=== PATIENT | male | born 1975 | race Caucasian/White ===

== ENCOUNTER 2018-08-24 17:51 | Emergency (ER) | payer MEDICARE, OTHER ==
[~2018-08-24] VITALS: Ht 198.1 cm; Wt 86.2 kg
[~2018-08-24 17:51] MED LIST: DIAZ10 PO; DIPH50 IV; Humalog100 UNIT/3 SQ; PREG150 PO; TEMA30 PO; TIZANIDINE HCL4 MG PO
[2018-08-24] MEDS ORDERED: DIVA500ER (18:06)
[2018-08-24] MEDS ORDERED: CYCL10 PO (18:06)
[2018-08-24] MEDS ORDERED: CLOP75 PO (18:06)
[2018-08-24] MEDS ORDERED: NORT75 (18:07)
[2018-08-24] MEDS ORDERED: PRAZ2 PO (18:07)
[2018-08-24] MEDS ORDERED: LORA1 PO (18:07)
[2018-08-24] MEDS ORDERED: Senna Laxative8.6 MG PO (18:07)
== END 2018-08-24 22:01 | disposition home or self-care (01) ==
LOC: ER 17:51
DX: S16.1XXA Strain of muscle, fascia and tendon at neck level, initial encounter (principal); V47.6XXA Car passenger injured in collision with fixed or stationary object in traffic accident, initial encounter
CPT/HCPCS: 72125; 96374; 96375; 99284-25; J1200

== ENCOUNTER 2018-09-05 17:23 | Emergency (ER) | payer MEDICARE, OTHER ==
[~2018-09-05] VITALS: Ht 198.1 cm; Wt 83.9 kg
[~2018-09-05 17:23] MED LIST changes: +CLOP75 PO; +CYCL10 PO; +DIVA500ER; +LORA1 PO; +NORT75; +PRAZ2 PO; +Senna Laxative8.6 MG PO
== END 2018-09-05 20:47 | disposition home or self-care (01) ==
LOC: ER 17:23
DX: G89.29 Other chronic pain (principal); Z88.8 Allergy status to other drugs, medicaments and biological substances; Z88.6 Allergy status to analgesic agent; Z88.0 Allergy status to penicillin; Z88.1 Allergy status to other antibiotic agents; Z88.5 Allergy status to narcotic agent; E11.9 Type 2 diabetes mellitus without complications; Z79.4 Long term (current) use of insulin; Z79.899 Other long term (current) drug therapy
CPT/HCPCS: 72070; 96374; 96375; 96376; 99283-25; J1200

== ENCOUNTER 2018-09-10 16:29 | Emergency (ER) | payer MEDICARE, OTHER ==
[~2018-09-10] VITALS: Ht 198.1 cm; Wt 88.5 kg
[2018-09-10] MEDS ORDERED: Prednisone20 MG PO (18:58)
== END 2018-09-10 19:12 | disposition home or self-care (01) ==
LOC: ER 16:29
DX: T78.09XA Anaphylactic reaction due to other food products, initial encounter (principal); Z88.6 Allergy status to analgesic agent; Z88.5 Allergy status to narcotic agent; Z88.8 Allergy status to other drugs, medicaments and biological substances; Z88.2 Allergy status to sulfonamides; Z88.1 Allergy status to other antibiotic agents; E11.9 Type 2 diabetes mellitus without complications; Z86.73 Personal history of transient ischemic attack (TIA), and cerebral infarction without residual deficits; K21.9 Gastro-esophageal reflux disease without esophagitis
CPT/HCPCS: 94640; 96361; 96372; 96374; 96375; 96376; 99284-25; J0171; J1200; J2930; J7030

== ENCOUNTER 2018-09-28 00:35 | Emergency (ER) | payer MEDICARE ==
[~2018-09-28] VITALS: Ht 198.1 cm; Wt 88.5 kg
[~2018-09-28 00:35] MED LIST changes: +Prednisone20 MG PO
== END 2018-09-28 04:13 | disposition home or self-care (01) ==
LOC: ER 00:35
DX: G89.29 Other chronic pain (principal); Z88.8 Allergy status to other drugs, medicaments and biological substances; Z88.6 Allergy status to analgesic agent; Z88.1 Allergy status to other antibiotic agents; Z88.5 Allergy status to narcotic agent; Z88.2 Allergy status to sulfonamides; Z79.899 Other long term (current) drug therapy; Z79.4 Long term (current) use of insulin; Z79.52 Long term (current) use of systemic steroids; E11.9 Type 2 diabetes mellitus without complications; Z86.73 Personal history of transient ischemic attack (TIA), and cerebral infarction without residual deficits
CPT/HCPCS: 96361; 96374; 96375; 99284-25; J1200; J7030

== ENCOUNTER 2018-10-07 20:28 | Emergency (ER) | payer MEDICARE ==
[~2018-10-07] VITALS: Ht 198.1 cm; Wt 86.2 kg
[2018-10-07 22:16] LABS: BASOPHILS ABSOLUTE AUTO 0.03 K/mm3 (0.00-0.23); BASOPHILS PERCENT AUTO 1 % (0-2); EOSINOPHILS ABSOLUTE AUTO 0.16 K/mm3 (0.00-0.68); EOSINOPHILS PERCENT AUTO 3 % (0-6); Hematocrit 38.7 % (37.0-53.0); Hemoglobin 12.2 g/dL (13.5-17.5); IMMATURE GRAN ABSOLUTE AUTO 0.03 K/mm3 (0.00-0.10); IMMATURE GRAN PERCENT AUTO 1 % (0-1); LYMPHOCYTES ABSOLUTE AUTO 1.21 K/mm3 (0.84-5.20); LYMPHOCYTES PERCENT AUTO 23 % (21-46); MONOCYTES ABSOLUTE AUTO 0.72 K/mm3 (0.16-1.47); MONOCYTES PERCENT AUTO 14 % (4-13); Mean Corpuscular HGB 28.3 pg (26.0-34.0); Mean Corpuscular HGB Conc 31.5 g/dL (31.5-36.5); Mean Corpuscular Volume 90 fL (80-100); Mean Platelet Volume 9.1 fL (9.1-12.4); NEUTROPHILS ABSOLUTE AUTO 3.18 K/mm3 (1.96-9.15); NEUTROPHILS PERCENT AUTO 60 % (41-73); Platelet Count 194 K/mm3 (150-400); RDW Coefficient Variation 18.1 % (11.7-14.2); RDW Standard Deviation 59.7 fL (35.1-46.3); Red Blood Cell Count 4.31 M/mm3 (4.30-5.90); White Blood Cell Count 5.33 K/mm3 (4.00-11.30)
[2018-10-07 22:54] LABS: Alanine Aminotransfer (ALT/SGP 173 U/L (12-78); Albumin, Blood 3.2 g/dL (3.4-5.0); Albumin/Globulin Ratio 0.7 (0.8-1.8); Alk Phos 683 U/L (50-136); Anion Gap 8 mmol/L (6-16); Aspartate Aminotrans (AST/SGOT 120 U/L (12-37); Blood Urea Nitrogen 27 mg/dL (8-24); CO2, Blood 27 mmol/L (21-32); Calcium, Blood 8.6 mg/dL (8.5-10.1); Chloride, Blood 98 mmol/L (98-108); Creatinine, Blood 1.23 mg/dL (0.60-1.20); Globulin, Blood 4.7 g/dL (2.2-4.0); Glomerular Filtration Rate >60 (60-); Glucose, Blood 271 mg/dL (70-99); Potassium, Blood 4.8 mmol/L (3.5-5.5); Sodium, Blood 133 mmol/L (136-145); Total Protein, Blood 7.9 g/dL (6.4-8.2)
[2018-10-07] MEDS ORDERED: Cipro500 MG PO (23:58)
[2018-10-09] MEDS ORDERED: DOCU100 PO (17:15)
== END 2018-10-08 01:23 | disposition home or self-care (01) ==
LOC: ER 20:28
PROVIDERS: Physician Assistant
DX: L03.031 Cellulitis of right toe (principal); E11.9 Type 2 diabetes mellitus without complications; Z86.73 Personal history of transient ischemic attack (TIA), and cerebral infarction without residual deficits; K21.9 Gastro-esophageal reflux disease without esophagitis; Z79.52 Long term (current) use of systemic steroids; Z79.4 Long term (current) use of insulin
CPT/HCPCS: 73630; 80053; 85025; 93922; 96374; 99284-25; J1200

== ENCOUNTER 2018-10-09 00:46 | Day surgery (SDC) | payer MEDICARE ==
[~2018-10-09 00:46] MED LIST changes: +Cipro500 MG PO
[2018-10-09] MEDS ORDERED: DOCU100 PO (17:15)
== END 2018-10-09 16:40 | disposition home or self-care (01) ==
LOC: ATC 00:46
DX: Z48.00 Encounter for change or removal of nonsurgical wound dressing (principal); Z45.2 Encounter for adjustment and management of vascular access device; Z87.892 Personal history of anaphylaxis; G82.22 Paraplegia, incomplete; Z79.899 Other long term (current) drug therapy; E10.65 Type 1 diabetes mellitus with hyperglycemia; Z79.4 Long term (current) use of insulin; M54.12 Radiculopathy, cervical region; Z89.512 Acquired absence of left leg below knee; G40.909 Epilepsy, unspecified, not intractable, without status epilepticus; G43.909 Migraine, unspecified, not intractable, without status migrainosus; Z79.02 Long term (current) use of antithrombotics/antiplatelets; Z86.73 Personal history of transient ischemic attack (TIA), and cerebral infarction without residual deficits; Z85.72 Personal history of non-Hodgkin lymphomas; F43.10 Post-traumatic stress disorder, unspecified; I25.2 Old myocardial infarction; Z95.1 Presence of aortocoronary bypass graft; Z92.3 Personal history of irradiation; Z90.49 Acquired absence of other specified parts of digestive tract
CPT/HCPCS: 99212

== ENCOUNTER 2018-10-15 00:04 | Day surgery (SDC) | payer MEDICARE ==
[~2018-10-15 00:04] MED LIST changes: +DOCU100 PO
[2018-10-15] MEDS ORDERED: Normal Saline Fl2 ML IV (14:39)
--- NOTE | 2018-10-15 16:00 | NUR ---
PT SPOUSE ARRIVED TO AFTER DRESSING WAS CHANGED. ASKED THIS RN IF I HAD USED SKIN PREP, YES IT WAS USED. REPORTS HE HAD A REACTION "ITCH/RASH" AFTER LAST TIME THAT WAS USED SO SHE CHANGED HIS PICC DRESSING. THIS RN THEN, CHANGED THE DRESSING AND CLEANSED SKIN THOROUGHLY WITH CHLORAPREP. NO REDNESS NOTED, IT WAS ONLY ON BRIEFLY. PT TOLERATED BOTH DRESSING CHANGES. STERILE TECHNIQUE MAINTAINED T/O PROCEDURES.
== END 2018-10-16 13:10 | disposition home or self-care (01) ==
LOC: ATC 00:04
DX: Z48.00 Encounter for change or removal of nonsurgical wound dressing (principal); Z87.892 Personal history of anaphylaxis
CPT/HCPCS: 36592

== ENCOUNTER 2018-10-19 20:53 | Emergency (ER) | payer MEDICARE ==
[~2018-10-19] VITALS: Ht 198.1 cm; Wt 90.7 kg
[~2018-10-19 20:53] MED LIST changes: +Normal Saline Fl2 ML IV
[2018-10-19 22:05] LABS: BASOPHILS ABSOLUTE AUTO 0.02 K/mm3 (0.00-0.23); BASOPHILS PERCENT AUTO 1 % (0-2); EOSINOPHILS PERCENT AUTO 3 % (0-6); Hematocrit 35.5 % (37.0-53.0); Hemoglobin 11.1 g/dL (13.5-17.5); IMMATURE GRAN ABSOLUTE AUTO 0.03 K/mm3 (0.00-0.10); IMMATURE GRAN PERCENT AUTO 1 % (0-1); LYMPHOCYTES ABSOLUTE AUTO 0.76 K/mm3 (0.84-5.20); LYMPHOCYTES PERCENT AUTO 24 % (21-46); MONOCYTES ABSOLUTE AUTO 0.38 K/mm3 (0.16-1.47); MONOCYTES PERCENT AUTO 12 % (4-13); Mean Corpuscular HGB 28.8 pg (26.0-34.0); Mean Corpuscular HGB Conc 31.3 g/dL (31.5-36.5); Mean Corpuscular Volume 92 fL (80-100); Mean Platelet Volume 10.1 fL (9.1-12.4); NEUTROPHILS ABSOLUTE AUTO 1.89 K/mm3 (1.96-9.15); NEUTROPHILS PERCENT AUTO 60 % (41-73); Platelet Count 146 K/mm3 (150-400); RDW Coefficient Variation 16.6 % (11.7-14.2); RDW Standard Deviation 56.7 fL (35.1-46.3); Red Blood Cell Count 3.85 M/mm3 (4.30-5.90); White Blood Cell Count 3.18 K/mm3 (4.00-11.30)
[2018-10-19 22:17] LABS: Alanine Aminotransfer (ALT/SGP 234 U/L (12-78); Albumin, Blood 3.1 g/dL (3.4-5.0); Albumin/Globulin Ratio 0.7 (0.8-1.8); Alk Phos 666 U/L (50-136); Anion Gap 7 mmol/L (6-16); Aspartate Aminotrans (AST/SGOT 132 U/L (12-37); Bilirubin, Total 0.9 mg/dL (0.1-1.0); Blood Urea Nitrogen 19 mg/dL (8-24); Bun/Creatinine Ratio 20.6 (12.0-20.0); CO2, Blood 27 mmol/L (21-32); Chloride, Blood 98 mmol/L (98-108); Creatinine, Blood 0.92 mg/dL (0.60-1.20); Globulin, Blood 4.7 g/dL (2.2-4.0); Glomerular Filtration Rate >60 (60-); Glucose, Blood 317 mg/dL (70-99); Sodium, Blood 132 mmol/L (136-145); Total Protein, Blood 7.8 g/dL (6.4-8.2)
[2018-10-19 22:27] LABS: Source, Urine Clean Catch
[2018-10-19 22:32] LABS: Bilirubin, Urine Neg (Neg); Blood, Urine 2+ (Neg); Glucose Qualitative, Urine 4+ (Neg); Ketones, Urine Neg (Neg); Leukocyte Esterase, Urine Neg (Neg); Nitrite, Urine Neg (Neg); Protein, Urine 3+ (Neg); Specific Gravity, Urine 1.015 (1.003-1.022); Urobilinogen, Urine 1+ (Normal)
[2018-10-19 22:39] LABS: Appearance, Urine Clear (Clear); Color, Urine Yellow (P-Yellow); White Blood Cells, Urine 0-2 /hpf (0-5)
[2018-10-19 22:40] LABS: Bacteria Few /hpf; Squamous Epithelial Cells Rare /hpf (Few)
[2018-10-19 22:43] LABS: U Amphetamine Screen Not Detected; U Barbituate Screen Not Detected; U Benzodiazapine Screen DETECTED; U Buprenorphine Screen Not Detected; U Cannabinoids Screen DETECTED; U Cocaine Screen Not Detected; U Methadone Screen Not Detected; U Methamphetamine Screen Not Detected; U Opiates Screen Not Detected; U Oxycodone Screen Not Detected; U Phencyclidine Screen Not Detected
[2018-10-19 22:44] LABS: U Propoxyphene Screen Not Detected
== END 2018-10-20 01:44 | disposition home or self-care (01) ==
LOC: ER 20:53
PROVIDERS: Emergency Medicine
DX: R56.9 Unspecified convulsions (principal); G89.29 Other chronic pain; S90.414A Abrasion, right lesser toe(s), initial encounter; D64.9 Anemia, unspecified; R79.89 Other specified abnormal findings of blood chemistry; X58.XXXA Exposure to other specified factors, initial encounter; Z88.8 Allergy status to other drugs, medicaments and biological substances; Z88.6 Allergy status to analgesic agent; Z88.0 Allergy status to penicillin; Z88.5 Allergy status to narcotic agent; Z88.2 Allergy status to sulfonamides; Z88.1 Allergy status to other antibiotic agents; Z79.899 Other long term (current) drug therapy; Z79.4 Long term (current) use of insulin; E11.9 Type 2 diabetes mellitus without complications; Z86.73 Personal history of transient ischemic attack (TIA), and cerebral infarction without residual deficits; K21.9 Gastro-esophageal reflux disease without esophagitis; Z87.891 Personal history of nicotine dependence
CPT/HCPCS: 80053; 81001; 85025; 93005; 93010; 96374; 96375; 96376; 99284-25; J1200; J2060

== ENCOUNTER 2018-10-22 05:21 | Day surgery (SDC) | payer MEDICARE | END 2018-10-22 15:13 | disposition home or self-care (01) | LOC: ATC 05:21 | DX: Z87.892 Personal history of anaphylaxis (principal); Z48.00 Encounter for change or removal of nonsurgical wound dressing; G82.22 Paraplegia, incomplete; Z79.899 Other long term (current) drug therapy; E10.65 Type 1 diabetes mellitus with hyperglycemia; Z79.4 Long term (current) use of insulin; M54.12 Radiculopathy, cervical region; Z89.512 Acquired absence of left leg below knee; G40.909 Epilepsy, unspecified, not intractable, without status epilepticus; Z86.73 Personal history of transient ischemic attack (TIA), and cerebral infarction without residual deficits; Z85.72 Personal history of non-Hodgkin lymphomas; I25.2 Old myocardial infarction; Z95.1 Presence of aortocoronary bypass graft | CPT/HCPCS: 99211 ==

== ENCOUNTER 2018-10-31 18:52 | Emergency (ER) | payer MEDICARE ==
[~2018-10-31] VITALS: Ht 198.1 cm; Wt 86.2 kg
[2018-10-31] MEDS ORDERED: DIAZ10 (19:19)
[2018-10-31 20:04] LABS: BASOPHILS ABSOLUTE AUTO 0.03 K/mm3 (0.00-0.23); BASOPHILS PERCENT AUTO 1 % (0-2); EOSINOPHILS PERCENT AUTO 3 % (0-6); Hematocrit 31.2 % (37.0-53.0); Hemoglobin 9.8 g/dL (13.5-17.5); IMMATURE GRAN ABSOLUTE AUTO 0.05 K/mm3 (0.00-0.10); IMMATURE GRAN PERCENT AUTO 2 % (0-1); LYMPHOCYTES ABSOLUTE AUTO 0.68 K/mm3 (0.84-5.20); LYMPHOCYTES PERCENT AUTO 21 % (21-46); MONOCYTES ABSOLUTE AUTO 0.45 K/mm3 (0.16-1.47); MONOCYTES PERCENT AUTO 14 % (4-13); Mean Corpuscular HGB 29.8 pg (26.0-34.0); Mean Corpuscular HGB Conc 31.4 g/dL (31.5-36.5); Mean Platelet Volume 9.2 fL (9.1-12.4); NEUTROPHILS ABSOLUTE AUTO 1.92 K/mm3 (1.96-9.15); NEUTROPHILS PERCENT AUTO 60 % (41-73); Platelet Count 154 K/mm3 (150-400); RDW Coefficient Variation 16.3 % (11.7-14.2); RDW Standard Deviation 56.7 fL (35.1-46.3); Red Blood Cell Count 3.29 M/mm3 (4.30-5.90); White Blood Cell Count 3.23 K/mm3 (4.00-11.30)
[2018-10-31 20:06] LABS: Mean Corpuscular Volume 95 fL (80-100)
[2018-10-31 20:15] LABS: Valproic Acid 50.5 ug/mL (50.0-100.0)
[2018-10-31 20:45] LABS: Alanine Aminotransfer (ALT/SGP 147 U/L (12-78); Albumin, Blood 2.8 g/dL (3.4-5.0); Albumin/Globulin Ratio 0.7 (0.8-1.8); Alk Phos 560 U/L (50-136); Anion Gap 6 mmol/L (6-16); Aspartate Aminotrans (AST/SGOT 107 U/L (12-37); Bilirubin, Total 1.2 mg/dL (0.1-1.0); Blood Urea Nitrogen 21 mg/dL (8-24); Bun/Creatinine Ratio 25.1 (12.0-20.0); CO2, Blood 26 mmol/L (21-32); Calcium, Blood 8.3 mg/dL (8.5-10.1); Chloride, Blood 99 mmol/L (98-108); Creatinine, Blood 0.84 mg/dL (0.60-1.20); Globulin, Blood 4.3 g/dL (2.2-4.0); Glomerular Filtration Rate >60 (60-); Glucose, Blood 337 mg/dL (70-99); Potassium, Blood 5.1 mmol/L (3.5-5.5); Sodium, Blood 131 mmol/L (136-145); Total Protein, Blood 7.1 g/dL (6.4-8.2)
== END 2018-10-31 22:57 | disposition home or self-care (01) ==
LOC: ER 18:52
PROVIDERS: Emergency Medicine
DX: G40.909 Epilepsy, unspecified, not intractable, without status epilepticus (principal); Z88.0 Allergy status to penicillin; Z88.6 Allergy status to analgesic agent; Z88.8 Allergy status to other drugs, medicaments and biological substances; Z88.1 Allergy status to other antibiotic agents; Z88.5 Allergy status to narcotic agent; Z88.2 Allergy status to sulfonamides; Z79.899 Other long term (current) drug therapy; Z79.4 Long term (current) use of insulin; E11.9 Type 2 diabetes mellitus without complications; Z86.73 Personal history of transient ischemic attack (TIA), and cerebral infarction without residual deficits; K21.9 Gastro-esophageal reflux disease without esophagitis; Z87.891 Personal history of nicotine dependence
CPT/HCPCS: 80053; 80164; 82947; 85025; 96374; 96375; 99284-25; J1200; J2060

== ENCOUNTER 2018-11-06 14:06 | Day surgery (SDC) | payer MEDICARE ==
[~2018-11-06 14:06] MED LIST changes: +DIAZ10
== END 2018-11-06 14:39 | disposition home or self-care (01) ==
LOC: ATC 14:06
DX: Z09 Encounter for follow-up examination after completed treatment for conditions other than malignant neoplasm (principal); G82.22 Paraplegia, incomplete; E10.65 Type 1 diabetes mellitus with hyperglycemia; M54.12 Radiculopathy, cervical region; Z89.512 Acquired absence of left leg below knee; G40.909 Epilepsy, unspecified, not intractable, without status epilepticus; Z87.892 Personal history of anaphylaxis; Z87.891 Personal history of nicotine dependence
CPT/HCPCS: 99211

== ENCOUNTER 2018-11-07 16:54 | Emergency (ER) | payer MEDICARE ==
[~2018-11-07] VITALS: Ht 172.7 cm; Wt 80.8 kg
[2018-11-07 18:00] LABS: Calcium, Ionized (POC) 1.16 mmol/L (1.10-1.46); Chloride (POC) 98 mmol/L (98-108); Glucose (ISTAT POC) 271 mg/dL (70-99); Hemoglobin (POC) 10.9 g/dL (13.5-17.5); Potassium (POC) 4.8 mmol/L (3.5-5.5); Sodium (POC) 134 mmol/L (135-148); Total CO2 (POC) 28 mmol/L (21-32)
== END 2018-11-07 21:08 | disposition home or self-care (01) ==
LOC: ER 16:54
PROVIDERS: Emergency Medicine
DX: R56.9 Unspecified convulsions (principal); G89.29 Other chronic pain; R51 Headache; E11.9 Type 2 diabetes mellitus without complications; Z86.73 Personal history of transient ischemic attack (TIA), and cerebral infarction without residual deficits; K21.9 Gastro-esophageal reflux disease without esophagitis; Z87.891 Personal history of nicotine dependence; Z88.6 Allergy status to analgesic agent; Z88.8 Allergy status to other drugs, medicaments and biological substances; Z88.0 Allergy status to penicillin; Z88.5 Allergy status to narcotic agent; Z88.1 Allergy status to other antibiotic agents; Z79.899 Other long term (current) drug therapy; Z79.4 Long term (current) use of insulin
CPT/HCPCS: 80047; 85014; 93005; 93010; 96374; 96375; 96376; 99284-25; J1200; J2060

== ENCOUNTER 2018-11-12 13:55 | Emergency (ER) | payer MEDICARE ==
[~2018-11-12] VITALS: Ht 198.1 cm; Wt 88.5 kg
[2018-11-12 16:00] LABS: Calcium, Ionized (POC) 1.16 mmol/L (1.10-1.46); Chloride (POC) 101 mmol/L (98-108); Glucose (ISTAT POC) 429 mg/dL (70-99); Hemoglobin (POC) 11.6 g/dL (13.5-17.5); Potassium (POC) 6.1 mmol/L (3.5-5.5); Sodium (POC) 132 mmol/L (135-148); Total CO2 (POC) 26 mmol/L (21-32)
[2018-11-12 17:31] LABS: Anion Gap 5 mmol/L (6-16); Blood Urea Nitrogen 26 mg/dL (8-24); Bun/Creatinine Ratio 30.3 (12.0-20.0); CO2, Blood 26 mmol/L (21-32); Calcium, Blood 8.4 mg/dL (8.5-10.1); Chloride, Blood 103 mmol/L (98-108); Creatinine, Blood 0.86 mg/dL (0.60-1.20); Glomerular Filtration Rate >60 (60-); Glucose, Blood 354 mg/dL (70-99); Potassium, Blood 4.9 mmol/L (3.5-5.5); Sodium, Blood 134 mmol/L (136-145)
[2018-11-12 17:40] LABS: Valproic Acid 36.1 ug/mL (50.0-100.0)
== END 2018-11-12 18:51 | disposition home or self-care (01) ==
LOC: ER 13:55
PROVIDERS: Emergency Medicine
DX: S30.0XXA Contusion of lower back and pelvis, initial encounter (principal); E87.5 Hyperkalemia; E11.65 Type 2 diabetes mellitus with hyperglycemia; W19.XXXA Unspecified fall, initial encounter; Z88.8 Allergy status to other drugs, medicaments and biological substances; Z88.0 Allergy status to penicillin; Z88.1 Allergy status to other antibiotic agents; Z88.5 Allergy status to narcotic agent; Z88.6 Allergy status to analgesic agent; Z79.899 Other long term (current) drug therapy; Z79.4 Long term (current) use of insulin; Z86.73 Personal history of transient ischemic attack (TIA), and cerebral infarction without residual deficits; Z87.891 Personal history of nicotine dependence
CPT/HCPCS: 72170; 72220; 80047; 80048; 80164; 82947; 85014; 96361; 96374; 96375; 96376; 99284-25; J1200; J1815; J2405; J7030

== ENCOUNTER 2018-11-17 00:56 | Day surgery (SDC) | payer MEDICARE | END 2018-11-17 14:00 | disposition home or self-care (01) | LOC: ATC 00:56 | DX: Z45.2 Encounter for adjustment and management of vascular access device (principal); G82.22 Paraplegia, incomplete; G40.909 Epilepsy, unspecified, not intractable, without status epilepticus; M54.12 Radiculopathy, cervical region; Z87.892 Personal history of anaphylaxis; Z89.512 Acquired absence of left leg below knee; Z87.891 Personal history of nicotine dependence | CPT/HCPCS: 99211 ==

== ENCOUNTER 2018-12-05 15:09 | Day surgery (SDC) | payer MEDICARE ==
[~2018-12-05 15:09] MED LIST changes: -DIAZ10
== END 2018-12-05 15:40 | disposition home or self-care (01) ==
LOC: ATC 15:09
DX: Z09 Encounter for follow-up examination after completed treatment for conditions other than malignant neoplasm (principal); G82.22 Paraplegia, incomplete; E10.9 Type 1 diabetes mellitus without complications; I10 Essential (primary) hypertension; I25.10 Atherosclerotic heart disease of native coronary artery without angina pectoris; M54.12 Radiculopathy, cervical region; G40.909 Epilepsy, unspecified, not intractable, without status epilepticus; Z87.892 Personal history of anaphylaxis; Z89.512 Acquired absence of left leg below knee; Z87.891 Personal history of nicotine dependence; Z79.899 Other long term (current) drug therapy; Z79.4 Long term (current) use of insulin; Z79.02 Long term (current) use of antithrombotics/antiplatelets
CPT/HCPCS: 99211

== ENCOUNTER 2018-12-10 08:32 | Day surgery (SDC) | payer MEDICARE, OTHER | END 2018-12-10 09:45 | disposition home or self-care (01) | LOC: ATC 08:32 | DX: Z09 Encounter for follow-up examination after completed treatment for conditions other than malignant neoplasm (principal); E10.9 Type 1 diabetes mellitus without complications; I10 Essential (primary) hypertension; G40.909 Epilepsy, unspecified, not intractable, without status epilepticus; Z87.892 Personal history of anaphylaxis; Z79.899 Other long term (current) drug therapy; Z87.891 Personal history of nicotine dependence | CPT/HCPCS: 99211 ==

== ENCOUNTER 2018-12-17 00:20 | Day surgery (SDC) | payer MEDICARE, OTHER ==
--- NOTE | 2018-12-17 19:20 | NUR ---
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 GILDARDO RN SAW CRACK IN LUMEN AND PT HAS NEW ORDER TO REPLACE PICC. PT ONLY DOES BENEDRYL FLUSHES VIA PICC AND THAT IS AN RN DOES THIS FOR HIM. THEY STATE THAT HIS EXISTING PICC IS 43 CM IN LENGTH. NO PICC RECORD EVERY WAS OBTAINED. STERILE TECHNIQUE DONE. CUT PICC AT 50 CM, BLOOD RETURN FROM LUMENS, FLUSHES WELL. PT NEEDED FULL 55 CM. ONCE THE OLD PICC WAS OUT AFTER EXCHANGE DID WE REALIZE THAT THE PICC WAS NOT 43 CM BUT 55 CM. PTS WAS VERY INSISTANT THAT IT WAS NOT 55 CM SINCE THIS IS WHAT THIS RN MEASURED, BUT CUT IT AT 50 CM. AGAIN PT IS ONLY USING THIS FOR IV PUSHES OF BENEDRYL AND OCCASIONAL FLUIDS. WROTE ON CARD THAT NO VESICANT MEDICATION TO BE PUT IN PICC. WILL FAX EVERYTHING TO [facility]
== END 2018-12-17 18:30 | disposition home or self-care (01) ==
LOC: ATC 00:20
DX: Z45.2 Encounter for adjustment and management of vascular access device (principal); G82.22 Paraplegia, incomplete; E10.65 Type 1 diabetes mellitus with hyperglycemia; M54.12 Radiculopathy, cervical region; G40.909 Epilepsy, unspecified, not intractable, without status epilepticus; Z89.512 Acquired absence of left leg below knee; Z87.892 Personal history of anaphylaxis; Z79.4 Long term (current) use of insulin; Z87.891 Personal history of nicotine dependence; Z79.899 Other long term (current) drug therapy
CPT/HCPCS: 36569; C1751

== ENCOUNTER 2018-12-25 10:54 | Day surgery (SDC) | payer MEDICARE, OTHER | END 2018-12-25 17:45 | disposition home or self-care (01) | LOC: ATC 10:54 | DX: Z45.2 Encounter for adjustment and management of vascular access device (principal); G40.909 Epilepsy, unspecified, not intractable, without status epilepticus; I10 Essential (primary) hypertension; I25.10 Atherosclerotic heart disease of native coronary artery without angina pectoris; E10.9 Type 1 diabetes mellitus without complications; M54.12 Radiculopathy, cervical region; I25.2 Old myocardial infarction; G43.909 Migraine, unspecified, not intractable, without status migrainosus; Z79.899 Other long term (current) drug therapy; Z79.4 Long term (current) use of insulin; Z86.73 Personal history of transient ischemic attack (TIA), and cerebral infarction without residual deficits; Z87.891 Personal history of nicotine dependence | CPT/HCPCS: 99211 ==

== ENCOUNTER 2019-01-01 15:19 | Day surgery (SDC) | payer MEDICARE, OTHER ==
[2019-01-01] MEDS ORDERED: MAGNESIUM SULF100 MG PO (16:00)
== END 2019-01-01 15:40 | disposition home or self-care (01) ==
LOC: ATC 15:19
DX: Z45.2 Encounter for adjustment and management of vascular access device (principal); E10.9 Type 1 diabetes mellitus without complications; M54.12 Radiculopathy, cervical region; G82.22 Paraplegia, incomplete; G40.909 Epilepsy, unspecified, not intractable, without status epilepticus; Z87.892 Personal history of anaphylaxis; Z89.512 Acquired absence of left leg below knee; Z79.899 Other long term (current) drug therapy; Z79.4 Long term (current) use of insulin; Z87.891 Personal history of nicotine dependence
CPT/HCPCS: 99211

== ENCOUNTER 2019-01-15 01:01 | Emergency (ER) | payer MEDICARE, OTHER ==
[~2019-01-15] VITALS: Ht 182.9 cm; Wt 86.2 kg
[~2019-01-15 01:01] MED LIST changes: +MAGNESIUM SULF100 MG PO
[2019-01-15 02:15] LABS: BASOPHILS ABSOLUTE AUTO 0.02 K/mm3 (0.00-0.23); BASOPHILS PERCENT AUTO 1 % (0-2); EOSINOPHILS ABSOLUTE AUTO 0.08 K/mm3 (0.00-0.68); EOSINOPHILS PERCENT AUTO 3 % (0-6); Hemoglobin 9.8 g/dL (13.5-17.5); IMMATURE GRAN ABSOLUTE AUTO 0.02 K/mm3 (0.00-0.10); IMMATURE GRAN PERCENT AUTO 1 % (0-1); LYMPHOCYTES ABSOLUTE AUTO 0.79 K/mm3 (0.84-5.20); LYMPHOCYTES PERCENT AUTO 25 % (21-46); MONOCYTES ABSOLUTE AUTO 0.46 K/mm3 (0.16-1.47); MONOCYTES PERCENT AUTO 14 % (4-13); Mean Corpuscular HGB 29.2 pg (26.0-34.0); Mean Corpuscular HGB Conc 31.6 g/dL (31.5-36.5); Mean Corpuscular Volume 92 fL (80-100); Mean Platelet Volume 9.1 fL (9.1-12.4); NEUTROPHILS ABSOLUTE AUTO 1.83 K/mm3 (1.96-9.15); NEUTROPHILS PERCENT AUTO 57 % (41-73); Platelet Count 125 K/mm3 (150-400); RDW Coefficient Variation 17.2 % (11.7-14.2); RDW Standard Deviation 58.7 fL (35.1-46.3); Red Blood Cell Count 3.36 M/mm3 (4.30-5.90)
[2019-01-15 02:29] LABS: International Normalized Ratio 0.94
[2019-01-15 02:35] LABS: Alanine Aminotransfer (ALT/SGP 115 U/L (12-78); Albumin, Blood 2.8 g/dL (3.4-5.0); Albumin/Globulin Ratio 0.7 (0.8-1.8); Alk Phos 525 U/L (50-136); Anion Gap 6 mmol/L (6-16); Aspartate Aminotrans (AST/SGOT 96 U/L (12-37); Bilirubin, Total 0.6 mg/dL (0.1-1.0); Blood Urea Nitrogen 24 mg/dL (8-24); Bun/Creatinine Ratio 24.2 (12.0-20.0); CO2, Blood 29 mmol/L (21-32); Chloride, Blood 106 mmol/L (98-108); Creatinine, Blood 0.99 mg/dL (0.60-1.20); Globulin, Blood 3.9 g/dL (2.2-4.0); Glomerular Filtration Rate >60 (60-); Glucose, Blood 107 mg/dL (70-99); Potassium, Blood 4.9 mmol/L (3.5-5.5); Sodium, Blood 141 mmol/L (136-145); Total Protein, Blood 6.7 g/dL (6.4-8.2)
== END 2019-01-15 04:21 | disposition home or self-care (01) ==
LOC: ER 01:01
PROVIDERS: Emergency Medicine
DX: G40.909 Epilepsy, unspecified, not intractable, without status epilepticus (principal); R47.01 Aphasia; K21.9 Gastro-esophageal reflux disease without esophagitis; Z88.0 Allergy status to penicillin; Z88.6 Allergy status to analgesic agent; Z88.8 Allergy status to other drugs, medicaments and biological substances; Z88.1 Allergy status to other antibiotic agents; Z88.5 Allergy status to narcotic agent; Z88.2 Allergy status to sulfonamides; Z79.899 Other long term (current) drug therapy; Z79.4 Long term (current) use of insulin; Z86.73 Personal history of transient ischemic attack (TIA), and cerebral infarction without residual deficits; Z87.891 Personal history of nicotine dependence
CPT/HCPCS: 70450; 80053; 85025; 85610; 93005; 93010; 96374; 96375; 99285-25; J1200

== ENCOUNTER 2019-01-30 14:01 | Day surgery (SDC) | payer MEDICARE, OTHER ==
[2019-05-18] MEDS ORDERED: Requip Xl2 MG PO (16:37)
[2019-05-18] MEDS ORDERED: Prilosec Otc20 MG PO (16:38)
[2019-05-18] MEDS ORDERED: MUPIROCIN15 GM EXT (16:39)
[2019-05-18] MEDS ORDERED: ONDA4 PO (16:40)
== END 2019-01-30 14:31 | disposition home or self-care (01) ==
LOC: ATC 14:01
DX: Z45.2 Encounter for adjustment and management of vascular access device (principal); Z87.891 Personal history of nicotine dependence
CPT/HCPCS: 99211

== ENCOUNTER 2019-02-02 15:03 | Emergency (ER) | payer MEDICARE, OTHER ==
[~2019-02-02] VITALS: Ht 172.7 cm; Wt 88.9 kg
[2019-02-02 17:12] LABS: BASOPHILS ABSOLUTE AUTO 0.03 K/mm3 (0.00-0.23); BASOPHILS PERCENT AUTO 1 % (0-2); EOSINOPHILS ABSOLUTE AUTO 0.16 K/mm3 (0.00-0.68); EOSINOPHILS PERCENT AUTO 4 % (0-6); Hematocrit 33.1 % (37.0-53.0); Hemoglobin 10.3 g/dL (13.5-17.5); IMMATURE GRAN ABSOLUTE AUTO 0.04 K/mm3 (0.00-0.10); IMMATURE GRAN PERCENT AUTO 1 % (0-1); LYMPHOCYTES ABSOLUTE AUTO 1.09 K/mm3 (0.84-5.20); LYMPHOCYTES PERCENT AUTO 25 % (21-46); MONOCYTES ABSOLUTE AUTO 0.62 K/mm3 (0.16-1.47); MONOCYTES PERCENT AUTO 14 % (4-13); Mean Corpuscular HGB 29.1 pg (26.0-34.0); Mean Corpuscular HGB Conc 31.1 g/dL (31.5-36.5); Mean Corpuscular Volume 94 fL (80-100); Mean Platelet Volume 9.3 fL (9.1-12.4); NEUTROPHILS ABSOLUTE AUTO 2.49 K/mm3 (1.96-9.15); NEUTROPHILS PERCENT AUTO 56 % (41-73); Platelet Count 188 K/mm3 (150-400); RDW Coefficient Variation 17.1 % (11.7-14.2); Red Blood Cell Count 3.54 M/mm3 (4.30-5.90); White Blood Cell Count 4.43 K/mm3 (4.00-11.30)
[2019-02-02 17:30] LABS: Troponin I <0.015 ng/mL (0.000-0.040)
[2019-02-02 17:46] LABS: Alanine Aminotransfer (ALT/SGP 181 U/L (12-78); Albumin, Blood 3.3 g/dL (3.4-5.0); Albumin/Globulin Ratio 0.8 (0.8-1.8); Alk Phos 781 U/L (50-136); Anion Gap 7 mmol/L (6-16); Aspartate Aminotrans (AST/SGOT 107 U/L (12-37); Bilirubin, Total 1.6 mg/dL (0.1-1.0); Blood Urea Nitrogen 31 mg/dL (8-24); Bun/Creatinine Ratio 25.6 (12.0-20.0); CO2, Blood 25 mmol/L (21-32); Chloride, Blood 98 mmol/L (98-108); Creatinine, Blood 1.21 mg/dL (0.60-1.20); Globulin, Blood 4.3 g/dL (2.2-4.0); Glomerular Filtration Rate >60 (60-); Glucose, Blood 221 mg/dL (70-99); Potassium, Blood 6.2 mmol/L (3.5-5.5); Sodium, Blood 130 mmol/L (136-145); Total Protein, Blood 7.6 g/dL (6.4-8.2)
[2019-02-02 20:11] LABS: Anion Gap 7 mmol/L (6-16); Blood Urea Nitrogen 28 mg/dL (8-24); Bun/Creatinine Ratio 24.8 (12.0-20.0); CO2, Blood 24 mmol/L (21-32); Calcium, Blood 8.7 mg/dL (8.5-10.1); Chloride, Blood 101 mmol/L (98-108); Creatinine, Blood 1.13 mg/dL (0.60-1.20); Glomerular Filtration Rate >60 (60-); Glucose, Blood 210 mg/dL (70-99); Potassium, Blood 5.1 mmol/L (3.5-5.5); Sodium, Blood 132 mmol/L (136-145)
[2019-05-18] MEDS ORDERED: Requip Xl2 MG PO (16:37)
[2019-05-18] MEDS ORDERED: Prilosec Otc20 MG PO (16:38)
[2019-05-18] MEDS ORDERED: MUPIROCIN15 GM EXT (16:39)
[2019-05-18] MEDS ORDERED: ONDA4 PO (16:40)
== END 2019-02-02 20:50 | disposition home or self-care (01) ==
LOC: ER 15:03
PROVIDERS: Emergency Medicine; Physician Assistant
DX: T75.4XXA Electrocution, initial encounter (principal); M54.5 Low back pain; M54.6 Pain in thoracic spine; W86.0XXA Exposure to domestic wiring and appliances, initial encounter; Z88.6 Allergy status to analgesic agent; Z88.8 Allergy status to other drugs, medicaments and biological substances; Z91.041 Radiographic dye allergy status; Z88.1 Allergy status to other antibiotic agents; Z88.5 Allergy status to narcotic agent; Z88.2 Allergy status to sulfonamides; Z79.899 Other long term (current) drug therapy; Z79.4 Long term (current) use of insulin; Z86.73 Personal history of transient ischemic attack (TIA), and cerebral infarction without residual deficits; K21.9 Gastro-esophageal reflux disease without esophagitis; Z87.891 Personal history of nicotine dependence
CPT/HCPCS: 72070; 72100; 80048; 80053; 84484; 85025; 93005; 93010; 96361; 96374; 96375; 96376; 99284-25; J1200; J7030

== ENCOUNTER 2019-02-04 17:46 | Emergency (ER) | payer MEDICARE, OTHER ==
[~2019-02-04] VITALS: Ht 198.1 cm; Wt 90.7 kg
[2019-05-18] MEDS ORDERED: Requip Xl2 MG PO (16:37)
[2019-05-18] MEDS ORDERED: Prilosec Otc20 MG PO (16:38)
[2019-05-18] MEDS ORDERED: MUPIROCIN15 GM EXT (16:39)
[2019-05-18] MEDS ORDERED: ONDA4 PO (16:40)
== END 2019-02-04 19:53 | disposition home or self-care (01) ==
LOC: ER 17:46
DX: S80.12XA Contusion of left lower leg, initial encounter (principal); L97.829 Non-pressure chronic ulcer of other part of left lower leg with unspecified severity; W19.XXXA Unspecified fall, initial encounter; Z79.899 Other long term (current) drug therapy; Z79.4 Long term (current) use of insulin
CPT/HCPCS: 73590; 96374; 96375; 99283-25; J1200

== ENCOUNTER 2019-02-11 00:22 | Day surgery (SDC) | payer MEDICARE, OTHER ==
[2019-05-18] MEDS ORDERED: Requip Xl2 MG PO (16:37)
[2019-05-18] MEDS ORDERED: Prilosec Otc20 MG PO (16:38)
[2019-05-18] MEDS ORDERED: MUPIROCIN15 GM EXT (16:39)
[2019-05-18] MEDS ORDERED: ONDA4 PO (16:40)
== END 2019-02-11 15:15 | disposition home or self-care (01) ==
LOC: ATC 00:22
DX: Z45.2 Encounter for adjustment and management of vascular access device (principal)
CPT/HCPCS: 99211

== ENCOUNTER 2019-02-19 01:15 | Day surgery (SDC) | payer OTHER ==
[2019-05-18] MEDS ORDERED: Requip Xl2 MG PO (16:37)
[2019-05-18] MEDS ORDERED: Prilosec Otc20 MG PO (16:38)
[2019-05-18] MEDS ORDERED: MUPIROCIN15 GM EXT (16:39)
[2019-05-18] MEDS ORDERED: ONDA4 PO (16:40)
== END 2019-02-19 16:11 | disposition home or self-care (01) ==
LOC: ATC 01:15
DX: Z45.2 Encounter for adjustment and management of vascular access device (principal); Z87.892 Personal history of anaphylaxis; R56.9 Unspecified convulsions; G82.22 Paraplegia, incomplete; E10.65 Type 1 diabetes mellitus with hyperglycemia; M54.12 Radiculopathy, cervical region; C85.90 Non-Hodgkin lymphoma, unspecified, unspecified site; F43.10 Post-traumatic stress disorder, unspecified; I25.10 Atherosclerotic heart disease of native coronary artery without angina pectoris; I25.2 Old myocardial infarction; I10 Essential (primary) hypertension; Z92.3 Personal history of irradiation; Z79.899 Other long term (current) drug therapy; Z79.01 Long term (current) use of anticoagulants; Z86.73 Personal history of transient ischemic attack (TIA), and cerebral infarction without residual deficits; Z89.512 Acquired absence of left leg below knee; Z79.4 Long term (current) use of insulin; Z95.1 Presence of aortocoronary bypass graft; Z88.8 Allergy status to other drugs, medicaments and biological substances; Z87.891 Personal history of nicotine dependence
CPT/HCPCS: 99211

== ENCOUNTER 2019-02-20 12:44 | Emergency (ER) | payer OTHER ==
[~2019-02-20] VITALS: Ht 198.1 cm; Wt 90.7 kg
[2019-02-20 13:48] LABS: BASOPHILS ABSOLUTE AUTO 0.02 K/mm3 (0.00-0.23); BASOPHILS PERCENT AUTO 1 % (0-2); EOSINOPHILS ABSOLUTE AUTO 0.08 K/mm3 (0.00-0.68); EOSINOPHILS PERCENT AUTO 3 % (0-6); Hematocrit 33.7 % (37.0-53.0); Hemoglobin 10.5 g/dL (13.5-17.5); IMMATURE GRAN ABSOLUTE AUTO 0.02 K/mm3 (0.00-0.10); IMMATURE GRAN PERCENT AUTO 1 % (0-1); LYMPHOCYTES ABSOLUTE AUTO 0.63 K/mm3 (0.84-5.20); LYMPHOCYTES PERCENT AUTO 23 % (21-46); MONOCYTES ABSOLUTE AUTO 0.41 K/mm3 (0.16-1.47); MONOCYTES PERCENT AUTO 15 % (4-13); Mean Corpuscular HGB 29.3 pg (26.0-34.0); Mean Corpuscular HGB Conc 31.2 g/dL (31.5-36.5); Mean Corpuscular Volume 94 fL (80-100); Mean Platelet Volume 9.3 fL (9.1-12.4); NEUTROPHILS ABSOLUTE AUTO 1.63 K/mm3 (1.96-9.15); NEUTROPHILS PERCENT AUTO 58 % (41-73); Platelet Count 132 K/mm3 (150-400); RDW Standard Deviation 52.8 fL (35.1-46.3); Red Blood Cell Count 3.58 M/mm3 (4.30-5.90); White Blood Cell Count 2.79 K/mm3 (4.00-11.30)
[2019-02-20 14:06] LABS: Alanine Aminotransfer (ALT/SGP 62 U/L (12-78); Albumin/Globulin Ratio 0.7 (0.8-1.8); Alk Phos 595 U/L (50-136); Anion Gap 6 mmol/L (6-16); Aspartate Aminotrans (AST/SGOT 55 U/L (12-37); Bilirubin, Total 0.8 mg/dL (0.1-1.0); Blood Urea Nitrogen 21 mg/dL (8-24); CO2, Blood 28 mmol/L (21-32); Calcium, Blood 9.2 mg/dL (8.5-10.1); Chloride, Blood 99 mmol/L (98-108); Creatinine, Blood 1.05 mg/dL (0.60-1.20); Globulin, Blood 4.3 g/dL (2.2-4.0); Glomerular Filtration Rate >60 (60-); Glucose, Blood 218 mg/dL (70-99); Sodium, Blood 133 mmol/L (136-145); Total Protein, Blood 7.3 g/dL (6.4-8.2)
[2019-05-18] MEDS ORDERED: Requip Xl2 MG PO (16:37)
[2019-05-18] MEDS ORDERED: Prilosec Otc20 MG PO (16:38)
[2019-05-18] MEDS ORDERED: MUPIROCIN15 GM EXT (16:39)
[2019-05-18] MEDS ORDERED: ONDA4 PO (16:40)
== END 2019-02-20 15:11 | disposition home or self-care (01) ==
LOC: ER 12:44
PROVIDERS: Emergency Medicine
DX: S16.1XXA Strain of muscle, fascia and tendon at neck level, initial encounter (principal); R56.9 Unspecified convulsions; M54.5 Low back pain; R79.89 Other specified abnormal findings of blood chemistry; E11.40 Type 2 diabetes mellitus with diabetic neuropathy, unspecified; K21.9 Gastro-esophageal reflux disease without esophagitis; M54.9 Dorsalgia, unspecified; G89.29 Other chronic pain; Z88.0 Allergy status to penicillin; Z88.6 Allergy status to analgesic agent; Z88.8 Allergy status to other drugs, medicaments and biological substances; Z88.5 Allergy status to narcotic agent; Z88.2 Allergy status to sulfonamides; Z79.4 Long term (current) use of insulin; Z79.899 Other long term (current) drug therapy; Z86.73 Personal history of transient ischemic attack (TIA), and cerebral infarction without residual deficits; W19.XXXA Unspecified fall, initial encounter
CPT/HCPCS: 70450; 72100; 72125; 80053; 80164; 85025; 96374; 96375; 96376; 99284-25; J1200

== ENCOUNTER 2019-03-02 00:26 | Day surgery (SDC) | payer OTHER ==
[2019-05-18] MEDS ORDERED: Requip Xl2 MG PO (16:37)
[2019-05-18] MEDS ORDERED: Prilosec Otc20 MG PO (16:38)
[2019-05-18] MEDS ORDERED: MUPIROCIN15 GM EXT (16:39)
[2019-05-18] MEDS ORDERED: ONDA4 PO (16:40)
== END 2019-03-02 14:52 | disposition home or self-care (01) ==
LOC: ATC 00:26
DX: Z45.2 Encounter for adjustment and management of vascular access device (principal); G82.22 Paraplegia, incomplete; E09.65 Drug or chemical induced diabetes mellitus with hyperglycemia; T50.8X5A Adverse effect of diagnostic agents, initial encounter; M54.12 Radiculopathy, cervical region; G40.909 Epilepsy, unspecified, not intractable, without status epilepticus; I10 Essential (primary) hypertension; I25.2 Old myocardial infarction; Z87.892 Personal history of anaphylaxis; Z79.899 Other long term (current) drug therapy; Z79.4 Long term (current) use of insulin; Z89.512 Acquired absence of left leg below knee; Z85.72 Personal history of non-Hodgkin lymphomas; Z95.1 Presence of aortocoronary bypass graft; Z91.09 Other allergy status, other than to drugs and biological substances; Z87.891 Personal history of nicotine dependence
CPT/HCPCS: 99211

== ENCOUNTER 2019-03-06 21:23 | Emergency (ER) | payer OTHER ==
[~2019-03-06] VITALS: Ht 198.1 cm; Wt 90.7 kg
[2019-05-18] MEDS ORDERED: Requip Xl2 MG PO (16:37)
[2019-05-18] MEDS ORDERED: Prilosec Otc20 MG PO (16:38)
[2019-05-18] MEDS ORDERED: MUPIROCIN15 GM EXT (16:39)
[2019-05-18] MEDS ORDERED: ONDA4 PO (16:40)
== END 2019-03-07 01:00 | disposition home or self-care (01) ==
LOC: ER 21:23
DX: S09.90XA Unspecified injury of head, initial encounter (principal); M54.2 Cervicalgia; M54.5 Low back pain; G89.29 Other chronic pain; E11.40 Type 2 diabetes mellitus with diabetic neuropathy, unspecified; N40.0 Benign prostatic hyperplasia without lower urinary tract symptoms; Z86.73 Personal history of transient ischemic attack (TIA), and cerebral infarction without residual deficits; Z89.512 Acquired absence of left leg below knee; Z88.0 Allergy status to penicillin; Z88.5 Allergy status to narcotic agent; Z88.6 Allergy status to analgesic agent; Z88.8 Allergy status to other drugs, medicaments and biological substances
CPT/HCPCS: 70450; 72125; 72131; 96374; 96375; 99284-25; J1200

== ENCOUNTER 2019-03-10 00:42 | Day surgery (SDC) | payer OTHER ==
[2019-05-18] MEDS ORDERED: Requip Xl2 MG PO (16:37)
[2019-05-18] MEDS ORDERED: Prilosec Otc20 MG PO (16:38)
[2019-05-18] MEDS ORDERED: MUPIROCIN15 GM EXT (16:39)
[2019-05-18] MEDS ORDERED: ONDA4 PO (16:40)
== END 2019-03-10 16:40 | disposition home or self-care (01) ==
LOC: ATC 00:42
DX: Z45.2 Encounter for adjustment and management of vascular access device (principal); G82.22 Paraplegia, incomplete; Z87.892 Personal history of anaphylaxis
CPT/HCPCS: 99211

== ENCOUNTER 2019-03-16 00:12 | Day surgery (SDC) | payer OTHER ==
[2019-05-18] MEDS ORDERED: Requip Xl2 MG PO (16:37)
[2019-05-18] MEDS ORDERED: Prilosec Otc20 MG PO (16:38)
[2019-05-18] MEDS ORDERED: MUPIROCIN15 GM EXT (16:39)
[2019-05-18] MEDS ORDERED: ONDA4 PO (16:40)
== END 2019-03-16 15:05 | disposition home or self-care (01) ==
LOC: ATC 00:12
DX: T88.6XXA Anaphylactic reaction due to adverse effect of correct drug or medicament properly administered, initial encounter (principal); T50.8X5A Adverse effect of diagnostic agents, initial encounter; G82.22 Paraplegia, incomplete; E10.9 Type 1 diabetes mellitus without complications; Z87.891 Personal history of nicotine dependence; Z88.8 Allergy status to other drugs, medicaments and biological substances
CPT/HCPCS: 99211

== ENCOUNTER 2019-03-23 00:18 | Day surgery (SDC) | payer OTHER ==
[2019-03-24] MEDS ORDERED: Humalog100 UNIT/1 SC (17:42)
[2019-05-18] MEDS ORDERED: Requip Xl2 MG PO (16:37)
[2019-05-18] MEDS ORDERED: Prilosec Otc20 MG PO (16:38)
[2019-05-18] MEDS ORDERED: MUPIROCIN15 GM EXT (16:39)
[2019-05-18] MEDS ORDERED: ONDA4 PO (16:40)
== END 2019-03-23 16:45 | disposition home or self-care (01) ==
LOC: ATC 00:18
DX: T88.6XXA Anaphylactic reaction due to adverse effect of correct drug or medicament properly administered, initial encounter (principal); T50.8X5A Adverse effect of diagnostic agents, initial encounter; N40.1 Benign prostatic hyperplasia with lower urinary tract symptoms; G40.909 Epilepsy, unspecified, not intractable, without status epilepticus; I10 Essential (primary) hypertension; E10.9 Type 1 diabetes mellitus without complications; I25.10 Atherosclerotic heart disease of native coronary artery without angina pectoris; I25.2 Old myocardial infarction; Z95.1 Presence of aortocoronary bypass graft; Z79.899 Other long term (current) drug therapy; Z79.02 Long term (current) use of antithrombotics/antiplatelets; Z86.73 Personal history of transient ischemic attack (TIA), and cerebral infarction without residual deficits; Z87.891 Personal history of nicotine dependence; Z87.892 Personal history of anaphylaxis
CPT/HCPCS: 99211

== ENCOUNTER 2019-03-24 17:06 | Emergency (ER) | payer OTHER ==
[~2019-03-24] VITALS: Ht 193 cm; Wt 86.2 kg
[2019-03-24] MEDS ORDERED: Humalog100 UNIT/1 SC (17:42)
[2019-05-18] MEDS ORDERED: Requip Xl2 MG PO (16:37)
[2019-05-18] MEDS ORDERED: Prilosec Otc20 MG PO (16:38)
[2019-05-18] MEDS ORDERED: MUPIROCIN15 GM EXT (16:39)
[2019-05-18] MEDS ORDERED: ONDA4 PO (16:40)
== END 2019-03-24 18:38 | disposition home or self-care (01) ==
LOC: ER 17:06
DX: S40.012A Contusion of left shoulder, initial encounter (principal); E11.40 Type 2 diabetes mellitus with diabetic neuropathy, unspecified; K21.9 Gastro-esophageal reflux disease without esophagitis; Z87.891 Personal history of nicotine dependence; Z79.899 Other long term (current) drug therapy; Z86.73 Personal history of transient ischemic attack (TIA), and cerebral infarction without residual deficits; Z88.0 Allergy status to penicillin; Z88.1 Allergy status to other antibiotic agents; Z88.2 Allergy status to sulfonamides; Z88.5 Allergy status to narcotic agent; Z88.8 Allergy status to other drugs, medicaments and biological substances; Z88.6 Allergy status to analgesic agent; Z79.4 Long term (current) use of insulin; W05.0XXA Fall from non-moving wheelchair, initial encounter
CPT/HCPCS: 73030; 93005; 93010; 96374; 96375; 99283-25; J1200

== ENCOUNTER 2019-03-25 15:36 | Emergency (ER) | payer OTHER ==
[~2019-03-25] VITALS: Ht 198.1 cm; Wt 90.7 kg
[~2019-03-25 15:36] MED LIST changes: +Humalog100 UNIT/1 SC
[2019-03-25 16:35] LABS: BASOPHILS ABSOLUTE AUTO 0.03 K/mm3 (0.00-0.23); BASOPHILS PERCENT AUTO 1 % (0-2); EOSINOPHILS ABSOLUTE AUTO 0.24 K/mm3 (0.00-0.68); EOSINOPHILS PERCENT AUTO 5 % (0-6); Hematocrit 33.5 % (37.0-53.0); Hemoglobin 10.4 g/dL (13.5-17.5); IMMATURE GRAN ABSOLUTE AUTO 0.08 K/mm3 (0.00-0.10); IMMATURE GRAN PERCENT AUTO 2 % (0-1); LYMPHOCYTES ABSOLUTE AUTO 0.78 K/mm3 (0.84-5.20); LYMPHOCYTES PERCENT AUTO 17 % (21-46); MONOCYTES ABSOLUTE AUTO 0.51 K/mm3 (0.16-1.47); MONOCYTES PERCENT AUTO 11 % (4-13); Mean Corpuscular Volume 90 fL (80-100); Mean Platelet Volume 8.8 fL (9.1-12.4); NEUTROPHILS ABSOLUTE AUTO 3.06 K/mm3 (1.96-9.15); NEUTROPHILS PERCENT AUTO 65 % (41-73); Platelet Count 120 K/mm3 (150-400); RDW Coefficient Variation 14.9 % (11.7-14.2); RDW Standard Deviation 49.6 fL (35.1-46.3); Red Blood Cell Count 3.71 M/mm3 (4.30-5.90)
[2019-03-25 16:59] LABS: Alanine Aminotransfer (ALT/SGP 72 U/L (12-78); Albumin, Blood 2.8 g/dL (3.4-5.0); Albumin/Globulin Ratio 0.7 (0.8-1.8); Alk Phos 545 U/L (50-136); Anion Gap 5 mmol/L (6-16); Aspartate Aminotrans (AST/SGOT 68 U/L (12-37); Bilirubin, Total 0.5 mg/dL (0.1-1.0); Blood Urea Nitrogen 22 mg/dL (8-24); Bun/Creatinine Ratio 20.4 (12.0-20.0); CO2, Blood 29 mmol/L (21-32); Chloride, Blood 101 mmol/L (98-108); Creatinine, Blood 1.08 mg/dL (0.60-1.20); Globulin, Blood 4.2 g/dL (2.2-4.0); Glomerular Filtration Rate >60 (60-); Glucose, Blood 190 mg/dL (70-99); Potassium, Blood 5.1 mmol/L (3.5-5.5); Sodium, Blood 135 mmol/L (136-145)
[2019-05-18] MEDS ORDERED: Requip Xl2 MG PO (16:37)
[2019-05-18] MEDS ORDERED: Prilosec Otc20 MG PO (16:38)
[2019-05-18] MEDS ORDERED: MUPIROCIN15 GM EXT (16:39)
[2019-05-18] MEDS ORDERED: ONDA4 PO (16:40)
== END 2019-03-25 17:42 | disposition home or self-care (01) ==
LOC: ER 15:36
PROVIDERS: Physician Assistant
DX: G40.909 Epilepsy, unspecified, not intractable, without status epilepticus (principal); M54.2 Cervicalgia; G89.29 Other chronic pain; E11.40 Type 2 diabetes mellitus with diabetic neuropathy, unspecified; K21.9 Gastro-esophageal reflux disease without esophagitis; N40.0 Benign prostatic hyperplasia without lower urinary tract symptoms; Z86.73 Personal history of transient ischemic attack (TIA), and cerebral infarction without residual deficits; Z87.891 Personal history of nicotine dependence; Z79.899 Other long term (current) drug therapy; Z79.4 Long term (current) use of insulin; W06.XXXA Fall from bed, initial encounter
CPT/HCPCS: 70450; 72125; 80053; 85025; 96374; 96375; 99284-25; J1200; J2060

== ENCOUNTER 2019-03-29 00:10 | Day surgery (SDC) | payer OTHER ==
[2019-05-18] MEDS ORDERED: Requip Xl2 MG PO (16:37)
[2019-05-18] MEDS ORDERED: Prilosec Otc20 MG PO (16:38)
[2019-05-18] MEDS ORDERED: MUPIROCIN15 GM EXT (16:39)
[2019-05-18] MEDS ORDERED: ONDA4 PO (16:40)
== END 2019-03-29 16:48 | disposition home or self-care (01) ==
LOC: ATC 00:10
DX: T88.6XXA Anaphylactic reaction due to adverse effect of correct drug or medicament properly administered, initial encounter (principal); T50.8X5A Adverse effect of diagnostic agents, initial encounter; G82.22 Paraplegia, incomplete; E10.9 Type 1 diabetes mellitus without complications; Z88.8 Allergy status to other drugs, medicaments and biological substances; Z99.3 Dependence on wheelchair; Z87.891 Personal history of nicotine dependence; Z89.512 Acquired absence of left leg below knee
CPT/HCPCS: 99211

== ENCOUNTER 2019-03-31 22:55 | Emergency (ER) | payer OTHER ==
[~2019-03-31] VITALS: Ht 182.9 cm; Wt 81.7 kg
[2019-05-18] MEDS ORDERED: Requip Xl2 MG PO (16:37)
[2019-05-18] MEDS ORDERED: Prilosec Otc20 MG PO (16:38)
[2019-05-18] MEDS ORDERED: MUPIROCIN15 GM EXT (16:39)
[2019-05-18] MEDS ORDERED: ONDA4 PO (16:40)
== END 2019-04-01 00:50 | disposition home or self-care (01) ==
LOC: ER 22:55
DX: G40.909 Epilepsy, unspecified, not intractable, without status epilepticus (principal); Z88.8 Allergy status to other drugs, medicaments and biological substances; Z88.6 Allergy status to analgesic agent; Z88.0 Allergy status to penicillin; Z88.1 Allergy status to other antibiotic agents; Z88.5 Allergy status to narcotic agent; Z79.4 Long term (current) use of insulin; Z79.899 Other long term (current) drug therapy; E11.40 Type 2 diabetes mellitus with diabetic neuropathy, unspecified; Z86.73 Personal history of transient ischemic attack (TIA), and cerebral infarction without residual deficits; K21.9 Gastro-esophageal reflux disease without esophagitis; Z87.891 Personal history of nicotine dependence
CPT/HCPCS: 82947; 93005; 93010; 96374; 96375; 99284-25; J1200

== ENCOUNTER 2019-04-01 15:02 | Emergency (ER) | payer OTHER ==
[~2019-04-01] VITALS: Ht 182.9 cm; Wt 81.7 kg
[2019-04-01 16:40] LABS: BASOPHILS ABSOLUTE AUTO 0.03 K/mm3 (0.00-0.23); BASOPHILS PERCENT AUTO 1 % (0-2); EOSINOPHILS ABSOLUTE AUTO 0.21 K/mm3 (0.00-0.68); EOSINOPHILS PERCENT AUTO 5 % (0-6); Hematocrit 32.6 % (37.0-53.0); IMMATURE GRAN ABSOLUTE AUTO 0.02 K/mm3 (0.00-0.10); IMMATURE GRAN PERCENT AUTO 1 % (0-1); LYMPHOCYTES ABSOLUTE AUTO 0.85 K/mm3 (0.84-5.20); LYMPHOCYTES PERCENT AUTO 20 % (21-46); MONOCYTES ABSOLUTE AUTO 0.46 K/mm3 (0.16-1.47); MONOCYTES PERCENT AUTO 11 % (4-13); Mean Corpuscular HGB 27.2 pg (26.0-34.0); Mean Corpuscular HGB Conc 30.7 g/dL (31.5-36.5); Mean Corpuscular Volume 89 fL (80-100); Mean Platelet Volume 9.2 fL (9.1-12.4); NEUTROPHILS ABSOLUTE AUTO 2.78 K/mm3 (1.96-9.15); NEUTROPHILS PERCENT AUTO 64 % (41-73); Platelet Count 107 K/mm3 (150-400); RDW Coefficient Variation 15.4 % (11.7-14.2); RDW Standard Deviation 49.7 fL (35.1-46.3); Red Blood Cell Count 3.67 M/mm3 (4.30-5.90); White Blood Cell Count 4.35 K/mm3 (4.00-11.30)
[2019-04-01 18:22] LABS: Alanine Aminotransfer (ALT/SGP 85 U/L (12-78); Albumin, Blood 2.8 g/dL (3.4-5.0); Albumin/Globulin Ratio 0.7 (0.8-1.8); Alk Phos 538 U/L (50-136); Anion Gap 3 mmol/L (6-16); Aspartate Aminotrans (AST/SGOT 91 U/L (12-37); Bilirubin, Total 0.7 mg/dL (0.1-1.0); Blood Urea Nitrogen 26 mg/dL (8-24); Bun/Creatinine Ratio 20.5 (12.0-20.0); CO2, Blood 28 mmol/L (21-32); Calcium, Blood 8.7 mg/dL (8.5-10.1); Chloride, Blood 102 mmol/L (98-108); Creatinine, Blood 1.27 mg/dL (0.60-1.20); Globulin, Blood 4.2 g/dL (2.2-4.0); Glomerular Filtration Rate >60 (60-); Glucose, Blood 222 mg/dL (70-99); Magnesium, Blood 2.3 mg/dL (1.6-2.4); Potassium, Blood 5.4 mmol/L (3.5-5.5); Prolactin 8.2 ng/mL (2.5-17.4); Sodium, Blood 133 mmol/L (136-145); Valproic Acid 62.8 ug/mL (50.0-100.0)
[2019-05-18] MEDS ORDERED: Requip Xl2 MG PO (16:37)
[2019-05-18] MEDS ORDERED: Prilosec Otc20 MG PO (16:38)
[2019-05-18] MEDS ORDERED: MUPIROCIN15 GM EXT (16:39)
[2019-05-18] MEDS ORDERED: ONDA4 PO (16:40)
== END 2019-04-01 19:14 | disposition home or self-care (01) ==
LOC: ER 15:02
PROVIDERS: Emergency Medicine
DX: G40.909 Epilepsy, unspecified, not intractable, without status epilepticus (principal); G43.909 Migraine, unspecified, not intractable, without status migrainosus; E11.40 Type 2 diabetes mellitus with diabetic neuropathy, unspecified; N40.0 Benign prostatic hyperplasia without lower urinary tract symptoms; Z86.73 Personal history of transient ischemic attack (TIA), and cerebral infarction without residual deficits; Z87.891 Personal history of nicotine dependence; Z88.0 Allergy status to penicillin; Z88.6 Allergy status to analgesic agent; Z88.1 Allergy status to other antibiotic agents; Z88.8 Allergy status to other drugs, medicaments and biological substances; Z88.5 Allergy status to narcotic agent; Z88.2 Allergy status to sulfonamides; Z79.899 Other long term (current) drug therapy; Z79.4 Long term (current) use of insulin
CPT/HCPCS: 70450; 80053; 80164; 83605; 83735; 84146; 85025; 96374; 96375; 96376; 99284-25; J1200

== ENCOUNTER 2019-04-06 12:53 | Emergency (ER) | payer OTHER ==
[~2019-04-06] VITALS: Ht 198.1 cm; Wt 88.5 kg
[2019-04-06 14:45] LABS: Calcium, Ionized (POC) 1.11 mmol/L (1.10-1.46); Chloride (POC) 102 mmol/L (98-108); Creatinine (POC) 1.5 mg/dL (0.8-1.3); Glucose (ISTAT POC) 229 mg/dL (70-99); Hemoglobin (POC) 11.9 g/dL (13.5-17.5); Sodium (POC) 131 mmol/L (135-148); Total CO2 (POC) 25 mmol/L (21-32)
[2019-04-06 15:12] LABS: Anion Gap 3 mmol/L (6-16); Blood Urea Nitrogen 27 mg/dL (8-24); Bun/Creatinine Ratio 22.1 (12.0-20.0); CO2, Blood 27 mmol/L (21-32); Calcium, Blood 9.1 mg/dL (8.5-10.1); Chloride, Blood 99 mmol/L (98-108); Creatinine, Blood 1.22 mg/dL (0.60-1.20); Glomerular Filtration Rate >60 (60-); Glucose, Blood 228 mg/dL (70-99); Potassium, Blood 5.8 mmol/L (3.5-5.5); Sodium, Blood 129 mmol/L (136-145); Valproic Acid 87.1 ug/mL (50.0-100.0)
[2019-05-18] MEDS ORDERED: Requip Xl2 MG PO (16:37)
[2019-05-18] MEDS ORDERED: Prilosec Otc20 MG PO (16:38)
[2019-05-18] MEDS ORDERED: MUPIROCIN15 GM EXT (16:39)
[2019-05-18] MEDS ORDERED: ONDA4 PO (16:40)
== END 2019-04-06 17:15 | disposition home or self-care (01) ==
LOC: ER 12:53
PROVIDERS: Emergency Medicine
DX: R56.9 Unspecified convulsions (principal); M25.511 Pain in right shoulder; M25.512 Pain in left shoulder; E87.5 Hyperkalemia; E11.40 Type 2 diabetes mellitus with diabetic neuropathy, unspecified; Z86.73 Personal history of transient ischemic attack (TIA), and cerebral infarction without residual deficits; K21.9 Gastro-esophageal reflux disease without esophagitis; G47.00 Insomnia, unspecified; Z87.891 Personal history of nicotine dependence
CPT/HCPCS: 73030; 80047; 80048; 80164; 85014; 96374; 99283-25; J2250

== ENCOUNTER 2019-04-08 15:03 | Emergency (ER) | payer OTHER ==
[~2019-04-08] VITALS: Ht 198.1 cm; Wt 200.0 kg
[2019-04-08 16:27] LABS: BASOPHILS ABSOLUTE AUTO 0.01 K/mm3 (0.00-0.23); BASOPHILS PERCENT AUTO 0 % (0-2); EOSINOPHILS ABSOLUTE AUTO 0.18 K/mm3 (0.00-0.68); EOSINOPHILS PERCENT AUTO 5 % (0-6); Hemoglobin 10.3 g/dL (13.5-17.5); IMMATURE GRAN ABSOLUTE AUTO 0.09 K/mm3 (0.00-0.10); IMMATURE GRAN PERCENT AUTO 3 % (0-1); LYMPHOCYTES ABSOLUTE AUTO 0.73 K/mm3 (0.84-5.20); LYMPHOCYTES PERCENT AUTO 20 % (21-46); MONOCYTES ABSOLUTE AUTO 0.52 K/mm3 (0.16-1.47); MONOCYTES PERCENT AUTO 14 % (4-13); Mean Corpuscular HGB 27.2 pg (26.0-34.0); Mean Corpuscular HGB Conc 31.2 g/dL (31.5-36.5); Mean Corpuscular Volume 87 fL (80-100); NEUTROPHILS ABSOLUTE AUTO 2.09 K/mm3 (1.96-9.15); NEUTROPHILS PERCENT AUTO 58 % (41-73); Platelet Count 138 K/mm3 (150-400); RDW Coefficient Variation 15.9 % (11.7-14.2); RDW Standard Deviation 50.7 fL (35.1-46.3); Red Blood Cell Count 3.78 M/mm3 (4.30-5.90); White Blood Cell Count 3.62 K/mm3 (4.00-11.30)
[2019-04-08 16:41] LABS: CPK Creatine Kinase 76 U/L (39-308); Creatine Kinase MB 4.2 ng/mL (0.0-3.6); Creatine Kinase MB Index 5.5 (0.0-4.0); Magnesium, Blood 2.1 mg/dL (1.6-2.4)
[2019-04-08 16:49] LABS: Alanine Aminotransfer (ALT/SGP 103 U/L (12-78); Albumin/Globulin Ratio 0.7 (0.8-1.8); Alk Phos 596 U/L (50-136); Aspartate Aminotrans (AST/SGOT 99 U/L (12-37); Bilirubin, Total 0.8 mg/dL (0.1-1.0); Blood Urea Nitrogen 21 mg/dL (8-24); Bun/Creatinine Ratio 18.6 (12.0-20.0); CO2, Blood 26 mmol/L (21-32); Calcium, Blood 9.1 mg/dL (8.5-10.1); Creatinine, Blood 1.13 mg/dL (0.60-1.20); Globulin, Blood 4.6 g/dL (2.2-4.0); Glomerular Filtration Rate >60 (60-); Glucose, Blood 208 mg/dL (70-99); Total Protein, Blood 7.6 g/dL (6.4-8.2)
[2019-05-18] MEDS ORDERED: Requip Xl2 MG PO (16:37)
[2019-05-18] MEDS ORDERED: Prilosec Otc20 MG PO (16:38)
[2019-05-18] MEDS ORDERED: MUPIROCIN15 GM EXT (16:39)
[2019-05-18] MEDS ORDERED: ONDA4 PO (16:40)
== END 2019-04-08 20:00 | disposition home or self-care (01) ==
LOC: ER 15:03
PROVIDERS: Emergency Medicine
DX: G40.909 Epilepsy, unspecified, not intractable, without status epilepticus (principal); E11.40 Type 2 diabetes mellitus with diabetic neuropathy, unspecified; M54.9 Dorsalgia, unspecified; G89.29 Other chronic pain; K21.9 Gastro-esophageal reflux disease without esophagitis; G47.00 Insomnia, unspecified; F43.10 Post-traumatic stress disorder, unspecified; Z86.73 Personal history of transient ischemic attack (TIA), and cerebral infarction without residual deficits; Z87.891 Personal history of nicotine dependence; Z88.1 Allergy status to other antibiotic agents; Z88.5 Allergy status to narcotic agent; Z88.0 Allergy status to penicillin; Z88.8 Allergy status to other drugs, medicaments and biological substances; Z88.2 Allergy status to sulfonamides; Z79.4 Long term (current) use of insulin; Z79.899 Other long term (current) drug therapy
CPT/HCPCS: 80053; 80164; 82550; 82553; 83605; 83735; 84145; 85025; 93005; 93010; 99284-25

== ENCOUNTER 2019-04-12 08:06 | Day surgery (SDC) | payer OTHER ==
[2019-05-18] MEDS ORDERED: Requip Xl2 MG PO (16:37)
[2019-05-18] MEDS ORDERED: Prilosec Otc20 MG PO (16:38)
[2019-05-18] MEDS ORDERED: MUPIROCIN15 GM EXT (16:39)
[2019-05-18] MEDS ORDERED: ONDA4 PO (16:40)
== END 2019-04-12 14:49 | disposition home or self-care (01) ==
LOC: ATC 08:06
DX: G40.909 Epilepsy, unspecified, not intractable, without status epilepticus (principal); N40.1 Benign prostatic hyperplasia with lower urinary tract symptoms; I10 Essential (primary) hypertension; E10.9 Type 1 diabetes mellitus without complications; I25.10 Atherosclerotic heart disease of native coronary artery without angina pectoris; I25.2 Old myocardial infarction; Z87.892 Personal history of anaphylaxis; Z79.899 Other long term (current) drug therapy; Z79.02 Long term (current) use of antithrombotics/antiplatelets; Z88.8 Allergy status to other drugs, medicaments and biological substances; Z86.73 Personal history of transient ischemic attack (TIA), and cerebral infarction without residual deficits; Z87.891 Personal history of nicotine dependence
CPT/HCPCS: 99211

== ENCOUNTER 2019-04-18 11:11 | Day surgery (SDC) | payer OTHER ==
[2019-05-18] MEDS ORDERED: Requip Xl2 MG PO (16:37)
[2019-05-18] MEDS ORDERED: Prilosec Otc20 MG PO (16:38)
[2019-05-18] MEDS ORDERED: MUPIROCIN15 GM EXT (16:39)
[2019-05-18] MEDS ORDERED: ONDA4 PO (16:40)
== END 2019-04-18 11:49 | disposition home or self-care (01) ==
LOC: ATC 11:11
DX: T78.2XXA Anaphylactic shock, unspecified, initial encounter (principal); G40.909 Epilepsy, unspecified, not intractable, without status epilepticus; G43.909 Migraine, unspecified, not intractable, without status migrainosus; N40.1 Benign prostatic hyperplasia with lower urinary tract symptoms; K22.0 Achalasia of cardia; E09.9 Drug or chemical induced diabetes mellitus without complications; T50.995A Adverse effect of other drugs, medicaments and biological substances, initial encounter; I10 Essential (primary) hypertension; I25.10 Atherosclerotic heart disease of native coronary artery without angina pectoris; I25.2 Old myocardial infarction; Z87.892 Personal history of anaphylaxis; Z88.8 Allergy status to other drugs, medicaments and biological substances; Z96.41 Presence of insulin pump (external) (internal); Z79.899 Other long term (current) drug therapy; Z87.891 Personal history of nicotine dependence; Z86.73 Personal history of transient ischemic attack (TIA), and cerebral infarction without residual deficits; Z79.01 Long term (current) use of anticoagulants
CPT/HCPCS: 99211

== ENCOUNTER 2019-04-19 15:54 | Emergency (ER) | payer OTHER ==
[~2019-04-19] VITALS: Ht 198.1 cm; Wt 90.7 kg
[2019-05-18] MEDS ORDERED: Requip Xl2 MG PO (16:37)
[2019-05-18] MEDS ORDERED: Prilosec Otc20 MG PO (16:38)
[2019-05-18] MEDS ORDERED: MUPIROCIN15 GM EXT (16:39)
[2019-05-18] MEDS ORDERED: ONDA4 PO (16:40)
== END 2019-04-19 19:01 | disposition home or self-care (01) ==
LOC: ER 15:54
DX: R41.0 Disorientation, unspecified (principal); G81.91 Hemiplegia, unspecified affecting right dominant side; E11.40 Type 2 diabetes mellitus with diabetic neuropathy, unspecified; G47.00 Insomnia, unspecified; Z76.5 Malingerer [conscious simulation]; Z89.511 Acquired absence of right leg below knee; Z89.512 Acquired absence of left leg below knee; Z86.73 Personal history of transient ischemic attack (TIA), and cerebral infarction without residual deficits; Z87.891 Personal history of nicotine dependence; Z88.0 Allergy status to penicillin; Z88.8 Allergy status to other drugs, medicaments and biological substances; Z88.1 Allergy status to other antibiotic agents; Z88.5 Allergy status to narcotic agent; Z88.2 Allergy status to sulfonamides; Z91.048 Other nonmedicinal substance allergy status; Z79.4 Long term (current) use of insulin; Z79.899 Other long term (current) drug therapy; W18.11XA Fall from or off toilet without subsequent striking against object, initial encounter
CPT/HCPCS: 70450; 72125; 82947; 99284-25

== ENCOUNTER 2019-04-21 13:50 | Day surgery (SDC) | payer OTHER ==
[~2019-04-21] VITALS: Ht 198.1 cm; Wt 90.9 kg
[2019-04-21] MEDS ORDERED: CLOP75 (14:12)
--- NOTE | 2019-04-21 15:02 | NUR ---
04/21/19 1502 Carla Rm S PT. C/O BLOOD SUGAR BEING TOO LOW. PT. C/O BILAT HANDS TREMBLING, SEEING STARS, & SPEECH AFFECTED. DR. WHALEN & DR. ELDRIDGE NOTIFIED. ORDERS GIVEN FOR 1/2 AMP D50 GIVEN IN IV, PT. RECEIVED 1/2 AMP D50 IN HIS IV. PT. ALSO RATING PAIN IN HIS LOWER BACK, NECK, & HEADACHE RATING A 9+. PT. VERBALIZES DOESN'T TAKE PAIN MEDS. & PT. VERBALIZE THAT HIS BLOOD SUGAR NEEDS TO BE KEPT AT 150-[address] ELDRIDGE & DR. WHALEN AWARE.
--- NOTE | 2019-04-21 16:27 | NUR ---
04/21/19 1627 Ajit Velazquez PATIENTS PICC LINE D/CD FROM LR FLUIDS AND FLUSHED WITH 10CC NS.
[2019-05-18] MEDS ORDERED: Requip Xl2 MG PO (16:37)
[2019-05-18] MEDS ORDERED: Prilosec Otc20 MG PO (16:38)
[2019-05-18] MEDS ORDERED: MUPIROCIN15 GM EXT (16:39)
[2019-05-18] MEDS ORDERED: ONDA4 PO (16:40)
== END 2019-04-21 16:16 | disposition home or self-care (01) ==
LOC: ORSCSDS 13:50
PROVIDERS: Internal Medicine Gastroenterology
PROC: 0DB78ZX Excision of Stomach, Pylorus, Via Natural or Artificial Opening Endoscopic, Diagnostic (ICD-10-PCS; principal; 2019-04-21 14:45)
PROC: 06L38CZ Occlusion of Esophageal Vein with Extraluminal Device, Via Natural or Artificial Opening Endoscopic (ICD-10-PCS; principal; 2019-04-21 14:45)
DX: K21.9 Gastro-esophageal reflux disease without esophagitis (principal); R13.10 Dysphagia, unspecified; K74.69 Other cirrhosis of liver; I85.10 Secondary esophageal varices without bleeding; K31.7 Polyp of stomach and duodenum; I10 Essential (primary) hypertension; E11.9 Type 2 diabetes mellitus without complications; Z86.73 Personal history of transient ischemic attack (TIA), and cerebral infarction without residual deficits; G82.20 Paraplegia, unspecified; I25.2 Old myocardial infarction; Z79.4 Long term (current) use of insulin; Z79.899 Other long term (current) drug therapy; F17.210 Nicotine dependence, cigarettes, uncomplicated; I25.10 Atherosclerotic heart disease of native coronary artery without angina pectoris
CPT/HCPCS: 82947; 88305; 88342; J2250; J2704; J7120; J7799

== ENCOUNTER 2019-04-27 00:11 | Day surgery (SDC) | payer OTHER ==
[~2019-04-27 00:11] MED LIST changes: +CLOP75
[2019-05-18] MEDS ORDERED: Requip Xl2 MG PO (16:37)
[2019-05-18] MEDS ORDERED: Prilosec Otc20 MG PO (16:38)
[2019-05-18] MEDS ORDERED: MUPIROCIN15 GM EXT (16:39)
[2019-05-18] MEDS ORDERED: ONDA4 PO (16:40)
== END 2019-04-27 12:00 | disposition home or self-care (01) ==
LOC: ATC 00:11
DX: G40.909 Epilepsy, unspecified, not intractable, without status epilepticus (principal); G43.109 Migraine with aura, not intractable, without status migrainosus; G82.22 Paraplegia, incomplete; K22.0 Achalasia of cardia; N40.1 Benign prostatic hyperplasia with lower urinary tract symptoms; I10 Essential (primary) hypertension; E10.9 Type 1 diabetes mellitus without complications; Z79.899 Other long term (current) drug therapy; Z79.01 Long term (current) use of anticoagulants; Z79.4 Long term (current) use of insulin; Z88.8 Allergy status to other drugs, medicaments and biological substances
CPT/HCPCS: 99212

== ENCOUNTER 2019-05-03 13:54 | Day surgery (SDC) | payer OTHER ==
[2019-05-18] MEDS ORDERED: Requip Xl2 MG PO (16:37)
[2019-05-18] MEDS ORDERED: Prilosec Otc20 MG PO (16:38)
[2019-05-18] MEDS ORDERED: MUPIROCIN15 GM EXT (16:39)
[2019-05-18] MEDS ORDERED: ONDA4 PO (16:40)
== END 2019-05-03 16:53 | disposition home or self-care (01) ==
LOC: ATC 13:54
DX: G43.109 Migraine with aura, not intractable, without status migrainosus (principal); G40.909 Epilepsy, unspecified, not intractable, without status epilepticus; G82.22 Paraplegia, incomplete; E11.9 Type 2 diabetes mellitus without complications; Z87.891 Personal history of nicotine dependence
CPT/HCPCS: 99211

== ENCOUNTER 2019-05-12 00:03 | Day surgery (SDC) | payer OTHER ==
[2019-05-18] MEDS ORDERED: Requip Xl2 MG PO (16:37)
[2019-05-18] MEDS ORDERED: Prilosec Otc20 MG PO (16:38)
[2019-05-18] MEDS ORDERED: MUPIROCIN15 GM EXT (16:39)
[2019-05-18] MEDS ORDERED: ONDA4 PO (16:40)
== END 2019-05-12 16:28 | disposition home or self-care (01) ==
LOC: ATC 00:03
DX: G40.909 Epilepsy, unspecified, not intractable, without status epilepticus (principal); G43.109 Migraine with aura, not intractable, without status migrainosus; G82.22 Paraplegia, incomplete; K22.0 Achalasia of cardia; N40.1 Benign prostatic hyperplasia with lower urinary tract symptoms; I10 Essential (primary) hypertension; I25.10 Atherosclerotic heart disease of native coronary artery without angina pectoris; I25.2 Old myocardial infarction; Z79.899 Other long term (current) drug therapy; Z88.8 Allergy status to other drugs, medicaments and biological substances; Z95.1 Presence of aortocoronary bypass graft; Z87.891 Personal history of nicotine dependence
CPT/HCPCS: 99211

== ENCOUNTER 2019-05-17 14:35 | Emergency (ER) | payer OTHER ==
[~2019-05-17] VITALS: Ht 198.1 cm; Wt 83.9 kg
[2019-05-17 16:10] LABS: BASOPHILS ABSOLUTE AUTO 0.03 K/mm3 (0.00-0.23); BASOPHILS PERCENT AUTO 1 % (0-2); EOSINOPHILS ABSOLUTE AUTO 0.16 K/mm3 (0.00-0.68); EOSINOPHILS PERCENT AUTO 3 % (0-6); Hematocrit 34.2 % (37.0-53.0); Hemoglobin 10.5 g/dL (13.5-17.5); IMMATURE GRAN ABSOLUTE AUTO 0.02 K/mm3 (0.00-0.10); IMMATURE GRAN PERCENT AUTO 0 % (0-1); LYMPHOCYTES ABSOLUTE AUTO 1.04 K/mm3 (0.84-5.20); LYMPHOCYTES PERCENT AUTO 22 % (21-46); MONOCYTES ABSOLUTE AUTO 0.55 K/mm3 (0.16-1.47); MONOCYTES PERCENT AUTO 12 % (4-13); Mean Corpuscular HGB 27.4 pg (26.0-34.0); Mean Corpuscular HGB Conc 30.7 g/dL (31.5-36.5); Mean Corpuscular Volume 89 fL (80-100); Mean Platelet Volume 9.8 fL (9.1-12.4); NEUTROPHILS ABSOLUTE AUTO 2.88 K/mm3 (1.96-9.15); NEUTROPHILS PERCENT AUTO 62 % (41-73); Platelet Count 173 K/mm3 (150-400); RDW Coefficient Variation 16.5 % (11.7-14.2); RDW Standard Deviation 54.3 fL (35.1-46.3); Red Blood Cell Count 3.83 M/mm3 (4.30-5.90); White Blood Cell Count 4.68 K/mm3 (4.00-11.30)
[2019-05-17 16:28] LABS: International Normalized Ratio 0.96; Prothrombin Time Results 10.2 Sec (9.7-11.5)
[2019-05-17 16:31] LABS: Alanine Aminotransfer (ALT/SGP 147 U/L (12-78); Albumin, Blood 3.3 g/dL (3.4-5.0); Albumin/Globulin Ratio 0.8 (0.8-1.8); Alk Phos 894 U/L (50-136); Anion Gap 4 mmol/L (6-16); Aspartate Aminotrans (AST/SGOT 126 U/L (12-37); Bilirubin, Total 1.5 mg/dL (0.1-1.0); Blood Urea Nitrogen 31 mg/dL (8-24); Bun/Creatinine Ratio 23.7 (12.0-20.0); CO2, Blood 25 mmol/L (21-32); Calcium, Blood 9.6 mg/dL (8.5-10.1); Chloride, Blood 101 mmol/L (98-108); Creatinine, Blood 1.31 mg/dL (0.60-1.20); Globulin, Blood 4.4 g/dL (2.2-4.0); Glomerular Filtration Rate >60 (60-); Glucose, Blood 141 mg/dL (70-99); Potassium, Blood 5.1 mmol/L (3.5-5.5); Sodium, Blood 130 mmol/L (136-145); Total Protein, Blood 7.7 g/dL (6.4-8.2)
[2019-05-18] MEDS ORDERED: Requip Xl2 MG PO (16:37)
[2019-05-18] MEDS ORDERED: Prilosec Otc20 MG PO (16:38)
[2019-05-18] MEDS ORDERED: MUPIROCIN15 GM EXT (16:39)
[2019-05-18] MEDS ORDERED: ONDA4 PO (16:40)
== END 2019-05-17 16:54 | disposition home or self-care (01) ==
LOC: ER 14:35
PROVIDERS: Emergency Medicine
DX: R51 Headache (principal); G89.29 Other chronic pain; R40.4 Transient alteration of awareness; R74.0 Nonspecific elevation of levels of transaminase and lactic acid dehydrogenase [LDH]; D64.9 Anemia, unspecified; E11.40 Type 2 diabetes mellitus with diabetic neuropathy, unspecified; K21.9 Gastro-esophageal reflux disease without esophagitis; F43.10 Post-traumatic stress disorder, unspecified; Z86.73 Personal history of transient ischemic attack (TIA), and cerebral infarction without residual deficits; Z87.891 Personal history of nicotine dependence; Z89.512 Acquired absence of left leg below knee; Z88.5 Allergy status to narcotic agent; Z88.8 Allergy status to other drugs, medicaments and biological substances; Z88.6 Allergy status to analgesic agent; Z88.1 Allergy status to other antibiotic agents; Z88.0 Allergy status to penicillin; Z88.2 Allergy status to sulfonamides; Z91.048 Other nonmedicinal substance allergy status; Z79.899 Other long term (current) drug therapy; Z79.4 Long term (current) use of insulin; Z79.02 Long term (current) use of antithrombotics/antiplatelets
CPT/HCPCS: 80053; 85025; 85610; 93005; 93010; 96374; 99285-25; J1885

== ENCOUNTER 2019-05-19 10:32 | Day surgery (SDC) | payer OTHER ==
[~2019-05-19] VITALS: Ht 198.1 cm; Wt 90.0 kg
[~2019-05-19 10:32] MED LIST changes: +MUPIROCIN15 GM EXT; +ONDA4 PO; +Prilosec Otc20 MG PO; +Requip Xl2 MG PO
[2019-05-19] MEDS ORDERED: SERT50 (12:05)
--- NOTE | 2019-05-19 15:10 | NUR ---
PT TO RECOVERY ROOM POST PROCEDURE. PT IS DROWSY, ROUSES TO VERBAL STIMULI, ANSWERS QUESTIONS; BUT FALLS BACK TO SLEEP WHEN LEFT ALONE. PT DENIES PAIN OR DISCOMFORT. MONITOR SR 80'S, B/P 150/75, SPO2 96% RA, CBG 89. RIGHT GROIN, NO SWELLING/HEMATOMA, TEGADERM DRSG C,D,I; RLE DOPPLER SIGNAL X 2. PT'S AT BEDSIDE, ATTENTIVE.
--- NOTE | 2019-05-19 17:07 | NUR ---
PT MORE AWAKE, CONVERSING, REPORTS HE IS COMFORTABLE. PT TOOK 100% OF TRAY WITHOUTPROBLEM. PT'S HOB RAISED AFTER 2 HRS, R GROIN SITE UNCHANGED.
--- NOTE | 2019-05-19 17:35 | NUR ---
PT SAT AT EDGE OF BED AND ASSISTED WITH DRESSING, SITE UNCHANGED WITH ACTIVITY.
--- NOTE | 2019-05-19 17:45 | NUR ---
PT AND RECEIVED DISCHARGE INSTRUCTIONS, MED LIST AND SUPPLEMENTAL EDUCATION INFORMATION; VERBALIZED GOOD UNDERSTANDING. PT LEFT FACILITY VIA W/C WITH , CONDITION STABLE.
== END 2019-05-19 17:45 | disposition home or self-care (01) ==
LOC: ORSCMMR 10:32 → MHTC 10:32
DX: I70.202 Unspecified atherosclerosis of native arteries of extremities, left leg (principal)
CPT/HCPCS: 37224; 37228; 37232; 75625; 75716; 75774; 82947; 85347; 99152; 99153; C1725; C1760; C1769; C1887; C1894; C2623; J1200; J1644; J2060; J2250; J7030; Q9967

== ENCOUNTER 2019-05-20 10:12 | Day surgery (SDC) | payer OTHER ==
[~2019-05-20] VITALS: Ht 198.1 cm; Wt 90.9 kg
[~2019-05-20 10:12] MED LIST changes: +SERT50
--- NOTE | 2019-05-20 10:55 | NUR ---
EXISTING PICC LINE ACCESSED. FLUSHED W/ 10 MLS NS, 1000L LR HOOKED UP & INFUSING @ 10CC/ HOUR.
--- NOTE | 2019-05-20 10:57 | NUR ---
05/20/19 1057 Toby Min PRE OP BLOOD SUGAR 320. DR. MARTINEZ NOTIFIED. V.O. FOR 10 UNITS SQ REGULAR INSULIN STAT. PT VSS. PT ALERT & ORIENTED. FAMILY AT BEDSIDE.
--- NOTE | 2019-05-20 12:19 | NUR ---
05/20/19 1219 Toby Min SEE EMAR. 50 MG IV BENADRY GIVEN PER DR. MARTINEZ ORDER. PT SO REQUESTED THIS ORDER TO DR. MARTINEZ. PT VSS. PT A&O. POST OP BLOOD SUGAR 196 @ [address]. DR MARTINEZ NOTIFIED OF BLOOD PRESSURE AND BLOOD SUGAR. OK TO DISCHARGE PER DR. MARTINEZ. DISCHARGE TEACHING COMPELTE. BOTH PT AND SO STATE AN UNDERSTANDING. PT DISCHARGED WITH STABLE VSS.
== END 2019-05-20 12:10 | disposition home or self-care (01) ==
LOC: ORSCSDS 10:12
PROVIDERS: Student in an Organized Health Care Education/Training Program
PROC: 06L38CZ Occlusion of Esophageal Vein with Extraluminal Device, Via Natural or Artificial Opening Endoscopic (ICD-10-PCS; principal; 2019-05-20 11:15)
DX: R13.10 Dysphagia, unspecified (principal); I85.00 Esophageal varices without bleeding; K21.9 Gastro-esophageal reflux disease without esophagitis; K74.60 Unspecified cirrhosis of liver; E10.42 Type 1 diabetes mellitus with diabetic polyneuropathy; I25.10 Atherosclerotic heart disease of native coronary artery without angina pectoris; I10 Essential (primary) hypertension; G40.909 Epilepsy, unspecified, not intractable, without status epilepticus; Z79.4 Long term (current) use of insulin; Z79.01 Long term (current) use of anticoagulants; Z79.899 Other long term (current) drug therapy
CPT/HCPCS: 82947; J1200; J1815; J2704; J7120

== ENCOUNTER 2019-05-22 20:24 | Emergency (ER) | payer OTHER ==
[~2019-05-22] VITALS: Ht 198.1 cm; Wt 90.7 kg
[2019-05-22 21:00] LABS: BASOPHILS ABSOLUTE AUTO 0.03 K/mm3 (0.00-0.23); BASOPHILS PERCENT AUTO 1 % (0-2); EOSINOPHILS ABSOLUTE AUTO 0.25 K/mm3 (0.00-0.68); EOSINOPHILS PERCENT AUTO 5 % (0-6); Hematocrit 34.2 % (37.0-53.0); Hemoglobin 10.4 g/dL (13.5-17.5); IMMATURE GRAN ABSOLUTE AUTO 0.04 K/mm3 (0.00-0.10); IMMATURE GRAN PERCENT AUTO 1 % (0-1); LYMPHOCYTES ABSOLUTE AUTO 1.14 K/mm3 (0.84-5.20); LYMPHOCYTES PERCENT AUTO 21 % (21-46); MONOCYTES ABSOLUTE AUTO 0.71 K/mm3 (0.16-1.47); MONOCYTES PERCENT AUTO 13 % (4-13); Mean Corpuscular HGB 27.1 pg (26.0-34.0); Mean Corpuscular HGB Conc 30.4 g/dL (31.5-36.5); Mean Corpuscular Volume 89 fL (80-100); Mean Platelet Volume 9.4 fL (9.1-12.4); NEUTROPHILS ABSOLUTE AUTO 3.35 K/mm3 (1.96-9.15); NEUTROPHILS PERCENT AUTO 61 % (41-73); Platelet Count 158 K/mm3 (150-400); RDW Coefficient Variation 16.4 % (11.7-14.2); RDW Standard Deviation 53.9 fL (35.1-46.3); Red Blood Cell Count 3.84 M/mm3 (4.30-5.90); White Blood Cell Count 5.52 K/mm3 (4.00-11.30)
[2019-05-22 21:14] LABS: Alanine Aminotransfer (ALT/SGP 113 U/L (12-78); Albumin, Blood 3.1 g/dL (3.4-5.0); Albumin/Globulin Ratio 0.7 (0.8-1.8); Alk Phos 881 U/L (50-136); Anion Gap 8 mmol/L (6-16); Aspartate Aminotrans (AST/SGOT 101 U/L (12-37); Blood Urea Nitrogen 28 mg/dL (8-24); Bun/Creatinine Ratio 18.8 (12.0-20.0); CO2, Blood 23 mmol/L (21-32); Calcium, Blood 9.2 mg/dL (8.5-10.1); Chloride, Blood 100 mmol/L (98-108); Creatinine, Blood 1.49 mg/dL (0.60-1.20); Globulin, Blood 4.7 g/dL (2.2-4.0); Glomerular Filtration Rate 54 (60-); Glucose, Blood 134 mg/dL (70-99); Sodium, Blood 131 mmol/L (136-145); Total Protein, Blood 7.8 g/dL (6.4-8.2); Troponin I <0.015 ng/mL (0.000-0.040)
== END 2019-05-23 00:47 | disposition home or self-care (01) ==
LOC: ER 20:24
PROVIDERS: Emergency Medicine
DX: R07.89 Other chest pain (principal); R06.02 Shortness of breath; E86.0 Dehydration; R11.2 Nausea with vomiting, unspecified; K21.9 Gastro-esophageal reflux disease without esophagitis; E11.40 Type 2 diabetes mellitus with diabetic neuropathy, unspecified; Z87.891 Personal history of nicotine dependence; Z89.512 Acquired absence of left leg below knee; Z86.73 Personal history of transient ischemic attack (TIA), and cerebral infarction without residual deficits; Z88.8 Allergy status to other drugs, medicaments and biological substances; Z88.6 Allergy status to analgesic agent; Z88.0 Allergy status to penicillin; Z88.1 Allergy status to other antibiotic agents; Z88.2 Allergy status to sulfonamides; Z88.5 Allergy status to narcotic agent; Z79.899 Other long term (current) drug therapy; Z79.4 Long term (current) use of insulin; Z79.02 Long term (current) use of antithrombotics/antiplatelets
CPT/HCPCS: 71046; 80053; 83690; 83880; 84484; 85025; 93005; 93010; 96361; 96374; 96375; 99284-25; J2405; J7030

== ENCOUNTER 2019-05-27 00:28 | Day surgery (SDC) | payer OTHER | END 2019-05-27 17:46 | disposition home or self-care (01) | LOC: ATC 00:28 | DX: G43.109 Migraine with aura, not intractable, without status migrainosus (principal); G40.909 Epilepsy, unspecified, not intractable, without status epilepticus; G82.22 Paraplegia, incomplete; N40.1 Benign prostatic hyperplasia with lower urinary tract symptoms; K22.0 Achalasia of cardia; E10.9 Type 1 diabetes mellitus without complications; Z79.899 Other long term (current) drug therapy; Z79.02 Long term (current) use of antithrombotics/antiplatelets; Z88.8 Allergy status to other drugs, medicaments and biological substances; Z87.891 Personal history of nicotine dependence | CPT/HCPCS: 99211 ==

== ENCOUNTER 2019-05-28 17:33 | Emergency (ER) | payer OTHER ==
[~2019-05-28] VITALS: Ht 182.9 cm; Wt 90.7 kg
[2019-05-28 18:07] LABS: BASOPHILS ABSOLUTE AUTO 0.02 K/mm3 (0.00-0.23); BASOPHILS PERCENT AUTO 0 % (0-2); EOSINOPHILS ABSOLUTE AUTO 0.21 K/mm3 (0.00-0.68); EOSINOPHILS PERCENT AUTO 4 % (0-6); Hematocrit 31.4 % (37.0-53.0); Hemoglobin 9.6 g/dL (13.5-17.5); IMMATURE GRAN ABSOLUTE AUTO 0.06 K/mm3 (0.00-0.10); IMMATURE GRAN PERCENT AUTO 1 % (0-1); LYMPHOCYTES ABSOLUTE AUTO 1.03 K/mm3 (0.84-5.20); LYMPHOCYTES PERCENT AUTO 22 % (21-46); MONOCYTES ABSOLUTE AUTO 0.39 K/mm3 (0.16-1.47); MONOCYTES PERCENT AUTO 8 % (4-13); Mean Corpuscular HGB 27.5 pg (26.0-34.0); Mean Corpuscular HGB Conc 30.6 g/dL (31.5-36.5); Mean Corpuscular Volume 90 fL (80-100); Mean Platelet Volume 9.5 fL (9.1-12.4); NEUTROPHILS ABSOLUTE AUTO 3.01 K/mm3 (1.96-9.15); NEUTROPHILS PERCENT AUTO 64 % (41-73); Platelet Count 159 K/mm3 (150-400); RDW Coefficient Variation 16.3 % (11.7-14.2); RDW Standard Deviation 53.9 fL (35.1-46.3); Red Blood Cell Count 3.49 M/mm3 (4.30-5.90); White Blood Cell Count 4.72 K/mm3 (4.00-11.30)
[2019-05-28 18:20] LABS: Calcium, Blood 8.7 mg/dL (8.5-10.1); Creatinine, Blood 1.58 mg/dL (0.60-1.20); Potassium, Blood 5.7 mmol/L (3.5-5.5)
== END 2019-05-28 20:54 | disposition home or self-care (01) ==
LOC: ER 17:33
PROVIDERS: Emergency Medicine
DX: R09.89 Other specified symptoms and signs involving the circulatory and respiratory systems (principal); E87.6 Hypokalemia; E86.0 Dehydration; E11.40 Type 2 diabetes mellitus with diabetic neuropathy, unspecified; Z86.73 Personal history of transient ischemic attack (TIA), and cerebral infarction without residual deficits; K21.9 Gastro-esophageal reflux disease without esophagitis; F43.10 Post-traumatic stress disorder, unspecified; Z88.8 Allergy status to other drugs, medicaments and biological substances; Z88.0 Allergy status to penicillin; Z88.6 Allergy status to analgesic agent; Z88.1 Allergy status to other antibiotic agents; Z88.5 Allergy status to narcotic agent; Z88.2 Allergy status to sulfonamides; Z79.4 Long term (current) use of insulin; Z79.899 Other long term (current) drug therapy; Z87.891 Personal history of nicotine dependence
CPT/HCPCS: 70360; 71045; 80048; 85025; 96361; 96374; 96375; 99284-25; J1200; J2405; J7030

== ENCOUNTER 2019-07-22 07:26 | Day surgery (SDC) | payer OTHER ==
[~2019-07-22] VITALS: Ht 198.1 cm; Wt 90.0 kg
[~2019-07-22 07:26] MED LIST changes: -CLOP75
[2019-07-22] MEDS ORDERED: TEMA30 PO (08:12)
[2019-07-22] MEDS ORDERED: Prazosin HCl2 MG PO (08:14)
[2019-07-22] MEDS ORDERED: Ropinirole HCl1 MG PO (08:15)
[2019-07-22] MEDS ORDERED: NOVOLOG FL100 UNIT/1 SC (08:16)
[2019-07-22 09:20] LABS: Alanine Aminotransfer (ALT/SGP 100 U/L (12-78); Albumin, Blood 2.8 g/dL (3.4-5.0); Albumin/Globulin Ratio 0.6 (0.8-1.8); Alk Phos 656 U/L (50-136); Anion Gap 6 mmol/L (6-16); Aspartate Aminotrans (AST/SGOT 99 U/L (12-37); Bilirubin, Total 1.3 mg/dL (0.1-1.0); Blood Urea Nitrogen 30 mg/dL (8-24); Bun/Creatinine Ratio 22.9 (12.0-20.0); CO2, Blood 25 mmol/L (21-32); Calcium, Blood 8.6 mg/dL (8.5-10.1); Chloride, Blood 100 mmol/L (98-108); Creatinine, Blood 1.31 mg/dL (0.60-1.20); Globulin, Blood 4.5 g/dL (2.2-4.0); Glomerular Filtration Rate >60 (60-); Glucose, Blood 226 mg/dL (70-99); Potassium, Blood 5.2 mmol/L (3.5-5.5); Sodium, Blood 131 mmol/L (136-145); Total Protein, Blood 7.3 g/dL (6.4-8.2)
--- NOTE | 2019-07-22 15:57 | NUR ---
DISHCARGE PT REMAINED A&OX3 AND DENIED ANY PAIN DURING RECOVERY. L GROIN SITE REMAINS CDI-NO HEMATOMA NOTED. POWER GLIDE LEFT IN PLACE-PER DR. NAIR ORDERS. PT DRESSED WITH HELP FROM SPOUSE. PT ABLE TO TRANSFER TO WHEEL CHAIR INDEPENDANTLY. DISCHARGE PAPERWORK GONE OVER WITH PT AND SPOUSE. PT AND SPOUSE VERBALLY STATED THE UNDERSTANDING OF THE DISCHARGE EDUCATION AND DENIED ANY QUESTIONS AT THIS TIME. PT WHEELED OUT BY SPOUSE.
--- NOTE | 2019-07-22 17:14 | NUR ---
PT DC'D BY WC WITH DRIVING PT HOME. PLAN IS FOR POWER PICC IV LINE TO STAY IN L UP BICEP PER V/O FROM DR TSANG TO [facility] RN.
== END 2019-07-22 23:04 | disposition home or self-care (01) ==
LOC: MHTC 07:26
PROVIDERS: Radiology Diagnostic Radiology
DX: I73.9 Peripheral vascular disease, unspecified (principal); I77.1 Stricture of artery; Z89.512 Acquired absence of left leg below knee; Z79.02 Long term (current) use of antithrombotics/antiplatelets; Z79.899 Other long term (current) drug therapy; Z91.041 Radiographic dye allergy status; Z88.6 Allergy status to analgesic agent; Z88.0 Allergy status to penicillin; Z88.5 Allergy status to narcotic agent; Z88.1 Allergy status to other antibiotic agents; Z88.8 Allergy status to other drugs, medicaments and biological substances
CPT/HCPCS: 37228; 37232; 75625; 75716; 75774; 80053; 85347; 99152; 99153; C1725; C1751; C1760; C1769; C1887; C1894; J1200; J1644; J2060; J2250; J7030; Q9967

== ENCOUNTER 2020-08-29 06:17 | Day surgery (SDC) | payer OTHER ==
[~2020-08-29] VITALS: Ht 198.1 cm; Wt 91.0 kg
[~2020-08-29 06:17] MED LIST changes: +NOVOLOG FL100 UNIT/1 SC; +Prazosin HCl2 MG PO; +Ropinirole HCl1 MG PO
[2020-08-29] MEDS ORDERED: LOKELMA PO (06:53)
[2020-08-29] MEDS ORDERED: ALLEGRA ALLERG180 MG PO (06:54)
[2020-08-29] MEDS ORDERED: FAMO20 PO (06:54)
[2020-08-29] MEDS ORDERED: LABE100 PO (06:55)
[2020-08-29] MEDS ORDERED: HYDR10 PO (06:55)
[2020-08-29] MEDS ORDERED: TADA10TA (06:56)
[2020-08-29] MEDS ORDERED: HYDMOR2 PO (06:57)
[2020-08-29] MEDS ORDERED: AMLO10 PO (06:58)
[2020-08-29 07:53] LABS: BASOPHILS ABSOLUTE AUTO 0.01 K/mm3 (0.00-0.23); BASOPHILS PERCENT AUTO 0 % (0-2); EOSINOPHILS ABSOLUTE AUTO 0.22 K/mm3 (0.00-0.68); EOSINOPHILS PERCENT AUTO 6 % (0-6); Hematocrit 26.9 % (37.0-53.0); Hemoglobin 8.5 g/dL (13.5-17.5); IMMATURE GRAN ABSOLUTE AUTO 0.03 K/mm3 (0.00-0.10); IMMATURE GRAN PERCENT AUTO 1 % (0-1); LYMPHOCYTES ABSOLUTE AUTO 1.17 K/mm3 (0.84-5.20); LYMPHOCYTES PERCENT AUTO 31 % (21-46); MONOCYTES ABSOLUTE AUTO 0.46 K/mm3 (0.16-1.47); MONOCYTES PERCENT AUTO 12 % (4-13); Mean Corpuscular HGB 28.7 pg (26.0-34.0); Mean Corpuscular HGB Conc 31.6 g/dL (31.5-36.5); Mean Corpuscular Volume 91 fL (80-100); Mean Platelet Volume 9.4 fL (9.1-12.4); NEUTROPHILS PERCENT AUTO 50 % (41-73); Platelet Count 107 K/mm3 (150-400); RDW Coefficient Variation 14.8 % (11.7-14.2); RDW Standard Deviation 49.6 fL (35.1-46.3); Red Blood Cell Count 2.96 M/mm3 (4.30-5.90); White Blood Cell Count 3.79 K/mm3 (4.00-11.30)
[2020-08-29 08:07] LABS: Prothrombin Time Results 10.7 Sec (9.7-11.5)
[2020-08-29 08:14] LABS: Calcium, Blood 8.8 mg/dL (8.5-10.1); Creatinine, Blood 1.88 mg/dL (0.60-1.20); Potassium, Blood 4.6 mmol/L (3.5-5.5)
--- NOTE | 2020-08-29 09:56 | NUR ---
PATIENT RETURNED TO THE RECOVERY ROOM. PLACED ON MARTIN MONITOR AND CALL LIGHT IN REACH. VVS. RHYTHM STRIP GATHERED. RIGHT GROIN FEMORAL SITE CDI, ANGIOSEAL, SOFT, NONTENDER. SBAR RECIEVED FROM ABHAY NICOLE AT THE BEDSIDE. AT THE BEDSIDE. GLUCOSE READING 110 OFF CELL MONITOR. PATIENT AWAKES EASILY WITH VERBAL STIMULI AND THEN DOZES BACK OFF TO SLEEP. SNORING NOTED. TAKING SMALL SIPS OF APPLE JUICE WITHOUT DIFFICULTY. BILATERAL HEADEND TECHNICIAN EQUAL AND SMILE EQUAL, SPEECH CLEAR.
--- NOTE | 2020-08-29 11:30 | NUR ---
PATIENT AWAKE AND VOIDING. EATING SOME OF TRAY WITH ASSISTANCE. AT THE BEDSIDE FOR CARE.
--- NOTE | 2020-08-29 12:04 | NUR ---
UPON GETTING PATIENT SHELBY FOR DISCHARGE HOME WITH SAYS " HE IS DOING IT AGAIN" SHE STATED THAT HE HAS LOST SENSE OF TASTE WHEN SHE OFFERED HIM EGGS TO EAT A FEW MINUTES PRIOR AND SHE STATED THAT HE HAS SLURRED SPEECH (THIS WAS NOTED BY NURSING ASSESSMENT THAT SPEECH WAS SLOWER THAN PRIOR ASSESSMENT). SHE STATED THAT HE HAS RIGHT SIDED WEAKNESS, NURSING ASSESSMENT DID SHOW THAT RIGHT HAND HAMMERER HELPER WAS WEAKER THAN LEFT. PATIENT WAS RESTING RIGHT ARM ON THE BED AND NOT REACHING FOR ANYTHING. THE STATED THAT SHE "WOULD DO AN ADJUSTMENT WITH HER TOOL" WHEN SHE GOT HIM UP TO THE WHEELCHAIR. STAFF AND FULLY ASSISTED PATIENT WITH DRESSING. HE ONLY ASSISTED WITH THE LEFT ARM/HAND. REVIEWED ALL DISCHARGE INSTRUCTIONS WITH THE AND PATIENT AND SIGNED ALL DISCHARGE PAPERWORK. DID ADJUSTMENT WITH HER TOOL ON THE PATIENT'S NECK AND BACK. PATIENT SYMPTOMS RESOLVED ALMOST IMMEDIATELY. SPEECH CLEARER, RIGHT ARM WITH SLIGHTLY WEAK HAMMERER HELPER, PATIENT ABLE TO ANSWER QUESTIONS AND SMILE EVEN. PATIENT DISCHARGED HOME VIA PERSONAL WHEELCHAIR WITH PUSHING.
--- NOTE | 2020-08-29 12:15 | NUR ---
1200 PIV TO THE RIGHT AC REMOVED AND PRESSURE DRESSING APPLIED PRIOR TO DISCHARGE.
--- NOTE | 2020-08-29 12:17 | NUR ---
REQUESTED THAT RESULTS OF TODAYS RESULTS SENT TO [facility]. [place]: [facility] [phone] [facility] [address] [place] [phone] [facility] [address] BELLA CURRIE [phone] STAFF PROVIDED THE WITH A DISK COPY OF TODAYS STUDY. ENCOURAGED TO CALL DR. TSANG'S OFFICE REGARDING ULTRASOUND STUDY DONE THERE PRIOR TO TODAY.
== END 2020-08-29 12:00 | disposition home or self-care (01) ==
LOC: MHTC 06:17
PROVIDERS: Radiology Diagnostic Radiology
DX: I65.01 Occlusion and stenosis of right vertebral artery (principal); Z86.73 Personal history of transient ischemic attack (TIA), and cerebral infarction without residual deficits; Z89.512 Acquired absence of left leg below knee
CPT/HCPCS: 36215; 36216; 36217; 36223; 36225; 36226-50; 76937; 80048; 85025; 85610; 99152; 99153; C1760; C1769; C1887; C1894; J1200; J1644; J2060; J2250; J7030; J7042; J7050; Q9967